=== PATIENT | male | born 1955 | race Caucasian/White ===

== ENCOUNTER 2016-09-19 11:58 | Observation (INO) ==
[2016-09-19] MEDS ORDERED: Aspirin 81 MG TAB.CHEW PO ONE (12:15)
--- NOTE | 2016-09-19 12:30 | Emergency Department Note ---
Disposition Clinical Impression: Unstable angina pectoris Disposition: Admitted As Inpatient Referrals: Casi Henry MD [Primary Care Provider] - Forms: ED Satisfaction Letter Chest Pain HPI - General Chief Complaint: ED Chest Pain Stated Complaint: chest pains Time Seen by Provider: 09/19/16 12:02 Source: patient Limitations: no limitations Vital Signs Reviewed: Yes Nursing Notes Reviewed: Yes - History of Present Illness Pt complaint: chest pain Onset (ago): day(s) (4) Duration: intermittent Onset: during rest, during exertion Pain Location: substernal Severity scale (1-10): 5 Quality: heaviness Pain Radiation: none Improves with: nitroglycerin (Took one nitroglycerin yesterday did help his pain ), rest Worsens with: exertion (When he is working especially at the end of his shift is at its worst) Associated symptoms: Reports: dyspnea Treatments prior to arrival chest pain: none - Related Data Home Medications Medication Instructions Recorded Confirmed Amlodipine Besylate 10 mg PO DAILY 04/27/15 04/27/15 Aspirin [Adult Low Dose Aspirin EC] 81 mg PO DAILY 04/27/15 04/27/15 Atorvastatin Calcium [Lipitor] 80 mg PO HS 04/27/15 04/27/15 Diclofenac Sodium (24 HR) 100 mg PO DAILY 04/27/15 04/27/15 [Voltaren XR] Diclofenac Sodium (24 HR) 200 mg PO DAILY 04/27/15 04/27/15 [Voltaren XR] Hydrochlorothiazide [Microzide] 12.5 mg PO DAILY 04/27/15 04/27/15 Hydroxychloroquine [Plaquenuil] 200 mg PO BID 04/27/15 04/27/15 Isosorbide MONOnitrate [Isosorbide 120 mg PO DAILY 04/27/15 04/27/15 Mononitrate ER] Nitroglycerin 0.4 mg SL Q5MIN PRN 04/27/15 04/27/15 Omeprazole [PriLOSEC] 40 mg PO DAILY 04/27/15 04/27/15 Testosterone Cypionate 200 mg IM Q2W 04/27/15 04/27/15 [DEPO-Testosterone] Vardenafil HCl [Levitra] 20 mg PO DAILY PRN 04/27/15 04/27/15 Vitamin D3/Folic Acid [Dermacinrx 5,000 unit PO DAILY 04/27/15 04/27/15 Purefolix Tablet] Previous Rx's Medication Instructions Recorded Hydrocodone/Acetaminophen [[place] 1 tab PO Q6H PRN #10 tab 04/28/15 5-325 Tablet] Ibuprofen [Motrin] 800 mg PO Q8HR #30 tablet 04/28/15 Allergies Allergy/AdvReac Type Severity Reaction Status Date / Time Iodinated Contrast- Oral and Allergy Hives Verified 04/27/15 23:31 IV Dye [Iodinated Contrast Media - IV Dye] All systems ED: reviewed and negative except as stated. Constitutional: Denies: fever, chills, weakness Cardiovascular: Reports: chest pain Respiratory: Reports: dyspnea Gastrointestinal: Denies: abdominal pain, nausea Musculoskeletal: Denies: back pain Chest Pain PMH - Past Medical History Medical history: Reports: hyperlipidemia, hypertension, kidney stones Psychiatric history: Reports: no psych history - Social History Smoking Status: Never smoker Alcohol use: Reports: none Drug use: Reports: none Physical Exam - General Limitations: no limitations General appearance: alert - Head Head exam: atraumatic, normocephalic, normal inspection - Eye Eye exam: Present: normal appearance, PERRL, EOMI - Expanded Eye Exam Pupils: Left: reactive - ENT ENT exam: normal exam, normal oropharynx, mucous membranes moist - Expanded ENT Exam External ear exam: Present: normal external inspection Mouth exam: Present: normal external inspection Teeth exam: Present: normal inspection Throat exam: Present: normal inspection - Neck Neck exam: Present: normal inspection, full ROM, trachea midline - Chest Chest inspection: Present: normal inspection, symmetric chest wall rise - Respiratory Respiratory exam: Present: normal lung sounds bilaterally - Cardiovascular Cardiovascular exam: Present: regular rate, normal rhythm, normal heart sounds - Abdominal Exam Abdominal exam: Present: soft, Non-Tender. Absent: tenderness, distention, guarding, rebound, rigidity - Extremities Exam Extremities exam: Present: normal inspection, full ROM. Absent: tenderness, pedal edema - Expanded Upper Extremity Exam Shoulder exam: Present: normal inspection, full ROM Arm exam: Present: normal inspection, full ROM Elbow exam: Present: normal inspection, full ROM Forearm/Wrist exam: Present: normal inspection, full ROM Hand exam: Present: normal inspection, full ROM Vascular exam: Normal: capillary refill, radial pulse - Expanded Lower Extremity Exam Hip/Pelvis exam: Present: normal inspection, full ROM Upper leg exam: Present: normal inspection, full ROM Knee exam: Present: normal inspection, full ROM Lower leg exam: Present: normal inspection, full ROM Ankle exam: Present: normal inspection, full ROM Foot/toe exam: Present: normal inspection, full ROM Neurovascular/Tendon exam: Absent: motor deficit, sensory deficit, tendon deficit - Back Exam Back exam: Present: normal inspection, full ROM. Absent: tenderness - Neurological Exam Neurological exam: Present: alert, oriented X3 - Expanded Neurological Exam Patient oriented to: Present: person, place, time Coma Scale Eye Opening: Spontaneous Coma Scale Motor Response: Obeys Commands Coma Scale Verbal Response: Oriented Coma Scale Total: 15 - Psychiatric Psychiatric exam: Present: normal affect, normal mood - Skin Skin exam: Present: warm, dry, intact, normal color Course Vital Signs Temperature 0 F L 09/19/16 12:06 Pulse Rate 57 09/19/16 12:06 Respiratory Rate 10 09/19/16 12:06 Blood Pressure 161/88 09/19/16 12:06 O2 Sat by Pulse Oximetry 97 09/19/16 12:06 Temperature 98.6 F 09/19/16 12:17 Pulse Rate 55 09/19/16 12:29 Respiratory Rate 11 09/19/16 12:29 Blood Pressure 144/81 09/19/16 12:29 O2 Sat by Pulse Oximetry 99 09/19/16 12:29 Oxygen Delivery Oxygen Delivery Nasal Cannula Chest Pain - Medical Records Medical records reviewed: Yes I reviewed the patient's medical records. - Lab Data Lab results reviewed: Yes I reviewed the patient's lab results. Result diagrams: 09/19/16 12:26 09/19/16 12:26 Lab Results 09/19/16 09/19/16 09/19/16 Range/Units 12:26 12:26 12:26 WBC 5.4 (4.3-11.1) K/mcL RBC 4.85 (4.19-5.50) M/mcL Hgb 14.9 (12.9-16.9) g/dL Hct 45.4 (37.5-50.1) % MCV 93.6 (83.0-100.0) fL MCH 30.7 (28.0-33.3) pg MCHC 32.8 (31.6-35.5) g/dL RDW 11.9 (11.5-14.5) % Plt Count 192 (140-400) K/mcL MPV 9.0 L (9.4-12.4) fL Immature Gran % 0.2 (0-4) % Seg Neutrophils % 70.2 % Lymphocytes % 19.8 % Monocytes % 7.4 % Eosinophils % 1.5 % Basophils % 0.9 % Neutrophils # 3.8 (1.6-8.9) K/mcL Lymphocytes # 1.1 (0.6-4.6) K/mcL Monocytes # 0.4 (0.0-1.3) K/mcL Eosinophils # 0.1 (0.0-0.6) K/mcL Basophils # 0.1 (0.0-0.2) K/mcL PT 10.3 (9.4-12.1) Seconds INR 1.0 APTT 29.7 (26.0-36.0) Seconds Sodium 140 (136-145) mEq/L Potassium 3.8 (3.5-4.5) mEq/L Chloride 103 (98-109) mEq/L Carbon Dioxide 30 H (19-29) mEq/L BUN 21 (8-26) mg/dL Creatinine 1.29 H (0.72-1.25) mg/dL Est GFR ( Amer) > 60 (> 60) Est GFR (Non-Af Amer) 56 L (> 60) BUN/Creatinine Ratio 16 (6-26) Glucose 97 (70-99) mg/dL Calculated Osmolality 293 (280-300) Calcium 10.0 (8.6-10.8) mg/dL Troponin I (0-0.03) ng/mL 09/19/16 Range/Units 12:26 WBC (4.3-11.1) K/mcL RBC (4.19-5.50) M/mcL Hgb (12.9-16.9) g/dL Hct (37.5-50.1) % MCV (83.0-100.0) fL MCH (28.0-33.3) pg MCHC (31.6-35.5) g/dL RDW (11.5-14.5) % Plt Count (140-400) K/mcL MPV (9.4-12.4) fL Immature Gran % (0-4) % Seg Neutrophils % % Lymphocytes % % Monocytes % % Eosinophils % % Basophils % % Neutrophils # (1.6-8.9) K/mcL Lymphocytes # (0.6-4.6) K/mcL Monocytes # (0.0-1.3) K/mcL Eosinophils # (0.0-0.6) K/mcL Basophils # (0.0-0.2) K/mcL PT (9.4-12.1) Seconds INR APTT (26.0-36.0) Seconds Sodium (136-145) mEq/L Potassium (3.5-4.5) mEq/L Chloride (98-109) mEq/L Carbon Dioxide (19-29) mEq/L BUN (8-26) mg/dL Creatinine (0.72-1.25) mg/dL Est GFR ( Amer) (> 60) Est GFR (Non-Af Amer) (> 60) BUN/Creatinine Ratio (6-26) Glucose (70-99) mg/dL Calculated Osmolality (280-300) Calcium (8.6-10.8) mg/dL Troponin I 0.01 (0-0.03) ng/mL - Radiology Data Radiology results reviewed: Yes I reviewed the patient's radiology results. - EKG Data EKG attestation: Yes I reviewed and interpreted this EKG. EKG shows normal: sinus rhythm Interpretation: nonspecific ST-T wave changes
[2016-09-19 12:32] LABS: Basophils # 0.1 K/mcL (0.0-0.2); Basophils % 0.9 %; Eosinophils # 0.1 K/mcL (0.0-0.6); Eosinophils % 1.5 %; Hematocrit 45.4 % (37.5-50.1); Hemoglobin 14.9 g/dL (12.9-16.9); Immature Granulocytes % 0.2 % (0-4); Lymphocytes # 1.1 K/mcL (0.6-4.6); Lymphocytes % 19.8 %; Mean Corpuscular HGB Conc 32.8 g/dL (31.6-35.5); Mean Corpuscular Hemoglobin 30.7 pg (28.0-33.3); Mean Corpuscular Volume 93.6 fL (83.0-100.0); Monocytes # 0.4 K/mcL (0.0-1.3); Monocytes % 7.4 %; Neutrophils # 3.8 K/mcL (1.6-8.9); Platelet Count 192 K/mcL (140-400); Red Blood Count 4.85 M/mcL (4.19-5.50); Red Cell Distribution Width 11.9 % (11.5-14.5); Segmented Neutrophils % 70.2 %
[2016-09-19 12:36] LABS: Prothrombin Time 10.3 Seconds (9.4-12.1)
[2016-09-19 12:39] LABS: Activated Partial Thrombo Time 29.7 Seconds (26.0-36.0)
[2016-09-19 12:44] LABS: BUN/Creatinine Ratio 16 (6-26); Blood Urea Nitrogen 21 mg/dL (8-26); Carbon Dioxide 30 mEq/L (19-29); Chloride 103 mEq/L (98-109); Glucose 97 mg/dL (70-99); Osmolality,Calculated 293 (280-300); Potassium 3.8 mEq/L (3.5-4.5); Sodium 140 mEq/L (136-145); eGFR For African Americans > 60 (> 60); eGFR For Non-African Americans 56 (> 60)
[2016-09-19] MEDS ORDERED: Naloxone 0.4 MG/ML INJ IVP PRN (14:10)
[2016-09-19] MEDS ORDERED: Acetaminophen 325 MG TABLET PO PRN (14:10)
[2016-09-19] MEDS ORDERED: Ondansetron ODT 4 MG TAB.RAPDIS SL PRN (14:10)
[2016-09-19] MEDS ORDERED: amLODIPine 5 MG TABLET PO SCH (14:15)
[2016-09-19] MEDS ORDERED: Nitroglycerin 0.4 MG TAB.SUBL SL PRN (14:15)
--- NOTE | 2016-09-19 14:26 | Internal Med History&Physical ---
Date of Encounter: 09/19/16 Time of Encounter: 14:23 Assessment and Plan (1) Unstable angina pectoris Current visit: Yes Status: Acute Patient presents with chest heaviness in the left side of his chest accompanied by shortness of breath, lightheadedness, sweats, palpitations, exacerbated by activity and exertion, relieved by rest and nitroglycerin. Symptoms started Friday and have been worsening. Initial troponin negative at 0.01. EKG shows normal sinus rhythm with nonspecific ST changes. Patient does have a history of coronary artery disease and stent to circumflex in 2008, other risk factors include hypertension, hyperlipidemia, and family history. Continuous cafeteria monitor Serial troponins Nitroglycerin when necessary for chest pain Echocardiogram Cardiology consult Nothing by mouth after midnight for possible stress versus left heart cath (2) Hypertension Current visit: Yes Status: Acute Blood pressure has been controlled since arrival, and patient did not take his morning medications yet today. Holding ACEI for CELINE. Continue home dose of amlodipine. Qualifiers: Hypertension type: essential hypertension Qualified Code(s): I10 - Essential (primary) hypertension (3) Bradycardia Current visit: Yes Status: Acute Patient's heart rate in the 50s, this appears to be somewhat chronic as previous EKGs also show sinus bradycardia. Continuous cafeteria monitor. (4) CELINE (acute kidney injury) Current visit: Yes Status: Acute Creatinine of 1.29. Hold NSAIDs, ACEi, HCTZ. Check chemistry daily. (5) DVT prophylaxis Current visit: Yes Status: Acute anti-embolic stockings Lovenox 40mg SQ daily Internal Medicine - H&P: HPI Chief complaint: chest pain, shortness of breath Admitted From: Emergency Dept Plans for Post Hospital Care: Home History of present illness: Mr. Melchor is a 61 year old male with hypertension, hyperlipidemia, coronary artery disease, acid reflux who presents to the emergency department today with complaints of chest pain. Patient reports that symptoms started on Friday, he describes the chest pain as a heaviness on the left side of his chest, accompanied by shortness of breath, lightheadedness, sweating and palpitations. The symptoms are exacerbated by activity and exertion, and relieved with rest and relieved with nitroglycerin. He denies any headache, cough, nausea, fever, chills. Evaluation in the emergency department included an EKG which showed normal sinus rhythm with nonspecific ST-T wave changes, chest x-ray showed no acute process. Troponin was negative at 0.01. Creatinine was mildly elevated at 1.29. Other labs are grossly normal. On exam, patient alert and oriented, in no acute distress. Heart has regular rhythm with mild bradycardia heart rate in the 50s. Lungs are clear bilaterally to auscultation. No peripheral edema. Past Med Surg Social Fam HX - Past Medical History Medical history: arthritis, coronary artery disease, hyperlipidemia, hypertension, kidney stones Psychiatric history: no psych history - Past Surgical History Surgical History: angioplasty/stent, arthroscopy, orthopedic, other (rotator cuff, carpal tunnel) - Social History Smoking Status: Never smoker Smokeless Tobacco Status: No Alcohol use: none Drug use: none - Family History Father Living Status: Age at : 74 Cause of : IN Hx Family Cardiac Disorders: Yes Sister Living Status: Still Living Hx Family Cardiac Disorders: Yes ([place], pacemaker) Mother Living Status: Age at : 70 Internal Medicine - H&P: Meds Aspirin [Adult Low Dose Aspirin EC] 81 mg PO DAILY 04/27/15 [History] Atorvastatin Calcium [Lipitor] 80 mg PO HS 04/27/15 [History] Hydrochlorothiazide [Microzide] 12.5 mg PO DAILY 04/27/15 [History] Hydroxychloroquine [Plaquenuil] 200 mg PO BID 04/27/15 [History] Isosorbide MONOnitrate [Isosorbide Mononitrate ER] 120 mg PO DAILY 04/27/15 [ History] Nitroglycerin 0.4 mg SL Q5MIN PRN 04/27/15 [History] Omeprazole [PriLOSEC] 40 mg PO DAILY 04/27/15 [History] Testosterone Cypionate [DEPO-Testosterone] 200 mg IM Q2W 04/27/15 [History] Vardenafil HCl [Levitra] 20 mg PO DAILY PRN 04/27/15 [History] Amlodipine Besylate/Benazepril [Lotrel 5-10 mg Capsule] 1 cap PO DAILY 09/19/16 [History] Celecoxib [Celebrex] 200 mg PO BID PRN 09/19/16 [History] Cholecalciferol (D-3) [Vitamin D] 5,000 unit PO DAILY 09/19/16 [History] Diclofenac Sodium [Voltaren] 1 appl TP QID PRN 09/19/16 [History] Allergies Iodinated Contrast- Oral and IV Dye [Iodinated Contrast Media - IV Dye] Allergy (Verified 04/27/15 23:31) Hives All Systems PM: A 10-system review of systems was performed and is negative for pertinent findings except as documented above in the HPI. - Constitutional Constitutional: no chills, no fever(s), no night sweats - EENT Eyes: no change in vision, no discharge, no pain, no photophobia Ears: no ear discharge, no ear pain, no tinnitus Nose, mouth and throat: no dysphagia, no nasal discharge, no neck pain, no sore throat - Cardiovascular Cardiovascular ROS IM: chest pain, diaphoresis, dyspnea, dyspnea on exertion, lightheadedness, palpitations, no syncope - Respiratory Respiratory: dyspnea, no cough, no wheezing, no excessive phlegm production - Gastrointestinal Gastrointestinal: no abdominal pain, no diarrhea, no hematemesis, no hematochezia, no melena, no nausea, no vomiting - Musculoskeletal Musculoskeletal ROS IM: no numbness, no tingling - Integumentary Integumentary IM: no rash, no unusual bruising - Neurological Neurological ROS: no confusion, no convulsions, no focal weakness, no numbness, no tingling, no tremor(s) - Hematologic/Lymphatic Hematologic/Lymphatic: no easy bruising - Constitutional Vitals: Temp Pulse Resp BP Pulse Ox 98.6 F 55 10 156/91 99 09/19/16 12:17 09/19/16 12:29 09/19/16 14:12 09/19/16 14:12 09/19/16 12:29 General appearance: Present: A&O X 3, pleasant, no acute distress - Head Head exam: Present: atraumatic, normocephalic - Eye Eye exam: Present: PERRL, conjuntiva pink, sclera anicteric Pupils: Present: PERRL - Neck Neck exam general surgery: Present: supple, trachea midline. Absent: lymphadenopathy - Respiratory Respiratory exam: Present: CTAB. Absent: accessory muscle use, rales, rhonchi, wheezes - Cardiovascular Cardiovascular exam: Present: RRR, +S1, +S2. Absent: diastolic murmur, gallop, rubs, systolic murmur - GI/Abdominal GI/Abdominal exam: Present: normal bowel sounds, soft, no peritoneal signs. Absent: distended, tenderness - Extremities Exam Extremities exam: Present: warm, radial pulses palpable and symetrical. Absent : calf tenderness, cyanotic, pedal edema - Neurological Exam Neurological exam: Present: CN II-XII intact, oriented X3, no focal deficits. Absent: facial droop, speech deficit - Skin Skin exam: Present: dry, intact Internal Med - H&P Results - Labs CBC & Chem 7: 09/19/16 12:26 09/19/16 12:26 Labs: All Lab Results (24 Hours) 09/19/16 09/19/16 09/19/16 Range/Units 12:26 12:26 12:26 WBC 5.4 (4.3-11.1) K/mcL RBC 4.85 (4.19-5.50) M/mcL Hgb 14.9 (12.9-16.9) g/dL Hct 45.4 (37.5-50.1) % MCV 93.6 (83.0-100.0) fL MCH 30.7 (28.0-33.3) pg MCHC 32.8 (31.6-35.5) g/dL RDW 11.9 (11.5-14.5) % Plt Count 192 (140-400) K/mcL MPV 9.0 L (9.4-12.4) fL Immature Gran % 0.2 (0-4) % Seg Neutrophils % 70.2 % Lymphocytes % 19.8 % Monocytes % 7.4 % Eosinophils % 1.5 % Basophils % 0.9 % Neutrophils # 3.8 (1.6-8.9) K/mcL Lymphocytes # 1.1 (0.6-4.6) K/mcL Monocytes # 0.4 (0.0-1.3) K/mcL Eosinophils # 0.1 (0.0-0.6) K/mcL Basophils # 0.1 (0.0-0.2) K/mcL PT 10.3 (9.4-12.1) Seconds INR 1.0 APTT 29.7 (26.0-36.0) Seconds Sodium 140 (136-145) mEq/L Potassium 3.8 (3.5-4.5) mEq/L Chloride 103 (98-109) mEq/L Carbon Dioxide 30 H (19-29) mEq/L BUN 21 (8-26) mg/dL Creatinine 1.29 H (0.72-1.25) mg/dL Est GFR ( Amer) > 60 (> 60) Est GFR (Non-Af Amer) 56 L (> 60) BUN/Creatinine Ratio 16 (6-26) Glucose 97 (70-99) mg/dL Calculated Osmolality 293 (280-300) Calcium 10.0 (8.6-10.8) mg/dL Troponin I (0-0.03) ng/mL 09/19/16 Range/Units 12:26 WBC (4.3-11.1) K/mcL RBC (4.19-5.50) M/mcL Hgb (12.9-16.9) g/dL Hct (37.5-50.1) % MCV (83.0-100.0) fL MCH (28.0-33.3) pg MCHC (31.6-35.5) g/dL RDW (11.5-14.5) % Plt Count (140-400) K/mcL MPV (9.4-12.4) fL Immature Gran % (0-4) % Seg Neutrophils % % Lymphocytes % % Monocytes % % Eosinophils % % Basophils % % Neutrophils # (1.6-8.9) K/mcL Lymphocytes # (0.6-4.6) K/mcL Monocytes # (0.0-1.3) K/mcL Eosinophils # (0.0-0.6) K/mcL Basophils # (0.0-0.2) K/mcL PT (9.4-12.1) Seconds INR APTT (26.0-36.0) Seconds Sodium (136-145) mEq/L Potassium (3.5-4.5) mEq/L Chloride (98-109) mEq/L Carbon Dioxide (19-29) mEq/L BUN (8-26) mg/dL Creatinine (0.72-1.25) mg/dL Est GFR ( Amer) (> 60) Est GFR (Non-Af Amer) (> 60) BUN/Creatinine Ratio (6-26) Glucose (70-99) mg/dL Calculated Osmolality (280-300) Calcium (8.6-10.8) mg/dL Troponin I 0.01 (0-0.03) ng/mL - Diagnostic Studies Chest x-ray Additional comments: Chest X-Ray 09/19/16 12:15 IMPRESSION: No acute process. D/ / Lexa Overton MD / Lexa Overton MD Interpreting Provider: Lexa Overton MD
--- NOTE | 2016-09-19 16:02 | Cardiology Consult Note ---
Date of Encounter: 09/19/16 Time of Encounter: 15:30 Assessment and Plan (1) CAD (coronary artery disease) Current Visit: Yes Status: Chronic Per cardiology: -KNown CAD with [facility] 2008 with stenting to circumflex. -ON asa, statin, mariely inhibitor, and calcium channerl zeferino. -HAs not been on beta zeferino due to bradycardia. -Echo 2012 LVEF 55%, mild diastolic dysfunction, no significant valvular dysfunction, all winn with normal motion. -Stress 2012 negative for ishcemia or infarct. -Will not start beta zeferino due to bradycardia. Qualifiers: Coronary Disease-Associated Artery/Lesion type: [place] artery [place] vs. transplanted heart: [place] heart Associated angina: with unstable angina Qualified Code(s): I25.110 - Atherosclerotic heart disease of [place] coronary artery with unstable angina pectoris (2) Chest pain Current Visit: Yes Status: Acute Per cardiology: -3-4 day history of mid sternal chest pain. -Worsened with working/excertion. -Relieved with rest/nitro. -ECG with no ischemic changes. -Troponin negative x1. -States pain much improved at this time. -Trending troponins ordered. -Pateint with typical chest pain symptoms. -Will make NPO after midnight. -PLan for LHC in am pending repeat creatinine in am. -Will pre-treat for IVP dye allergy prior to LHC. Qualifiers: Chest pain type: other chest pain Qualified Code(s): R07.89 - Other chest pain; R07.8 - Other chest pain (3) CELINE (acute kidney injury) Current Visit: Yes Status: Acute Per cardiology: -Creatinine 1.29. -Baseline 0.8-1.1 -Mangement per primary service. -Will repeat in am. (4) Hypertension Current Visit: Yes Status: Chronic Per cardiology: -KNown hypertension. -BPs 130-140s systollic. -Will increase norvasc to 10mg daily. -Will continue to monitor. Qualifiers: Hypertension type: essential hypertension Qualified Code(s): I10 - Essential (primary) hypertension Discussion w patient/family: The assessment and plan as outlined above was discussed with the patient and/or family members who expressed understanding and agreement. All questions were answered. Thank you for involving us in the care of your patient. Please call with any questions. DIscussed and reviewed with . History of Present Illness Consult date: 09/19/16 Requesting physician: Sahara Sosa Consult reason: history of CAD, chest pain, shortness of breath Chief complaint: chest tightness, shortness of breath History of present illness: Mr. Melchor is a 61 year old male with a relevant past medical history of CAD s/ p stenting of cirumflex 2009, HTN, Hyperlipidemia, RA, TIA, ID, depression. Patient presented to [facility] after being seen by PCP for chest "tightness." Patient states he has been having chest tightness for the past 3-4 days. Patient states at worst, he would rate pain a 7/10. Patient reports chest pain worsened with working/excertion and relieved with rest and nitro. Patient reports increased shortness of breath and increased fatigue. Past Med Surg Social Fam HX - Past Medical History Attestation: Yes The following information was validated with the patient. Source: patient, old records reviewed, obtained from family Medical history: arthritis, coronary artery disease, hyperlipidemia, hypertension, kidney stones Psychiatric history: no psych history - Past Surgical History Surgical History: angioplasty/stent, arthroscopy, orthopedic, other (rotator cuff, carpal tunnel) - Social History Smoking Status: Never smoker Smokeless Tobacco Status: No Alcohol use: none Drug use: none - Family History Father Living Status: Age at : 74 Cause of : ID Hx Family Cardiac Disorders: Yes Sister Living Status: Still Living Hx Family Cardiac Disorders: Yes (ID, pacemaker) Mother Living Status: Age at : 70 Medications and Allergies Aspirin [Adult Low Dose Aspirin EC] 81 mg PO DAILY 04/27/15 [History] Atorvastatin Calcium [Lipitor] 80 mg PO HS 04/27/15 [History] Hydrochlorothiazide [Microzide] 12.5 mg PO DAILY 04/27/15 [History] Hydroxychloroquine [Plaquenuil] 200 mg PO BID 04/27/15 [History] Isosorbide MONOnitrate [Isosorbide Mononitrate ER] 120 mg PO DAILY 04/27/15 [ History] Nitroglycerin 0.4 mg SL Q5MIN PRN 04/27/15 [History] Omeprazole [PriLOSEC] 40 mg PO DAILY 04/27/15 [History] Testosterone Cypionate [DEPO-Testosterone] 200 mg IM Q2W 04/27/15 [History] Vardenafil HCl [Levitra] 20 mg PO DAILY PRN 04/27/15 [History] Amlodipine Besylate/Benazepril [Lotrel 5-10 mg Capsule] 1 cap PO DAILY 09/19/16 [History] Celecoxib [Celebrex] 200 mg PO BID PRN 09/19/16 [History] Cholecalciferol (D-3) [Vitamin D] 5,000 unit PO DAILY 09/19/16 [History] Diclofenac Sodium [Voltaren] 1 appl TP QID PRN 09/19/16 [History] Allergies Iodinated Contrast- Oral and IV Dye [Iodinated Contrast Media - IV Dye] Allergy (Verified 04/27/15 23:31) Hives All Systems Review: A 10-system review of systems was performed and is negative for pertinent findings except as documented above in the HPI. - Constitutional Constitutional: fatigue - Cardiovascular Cardiovascular: as per HPI, chest pain with exertion, dyspnea on exertion Physical Examination Vital Signs, Last 4 Hours Temp Pulse Resp BP Pulse Ox 09/19/16 15:18 97.7 F 50 17 131/83 98 09/19/16 14:12 10 156/91 General: Conversant, No Apparent Distress HEENT: Atraumatic, Normocephaly, Mucus Membranes Moist Neck: No JVD, Normal carotid pulses Cardiac: Reg Rate and Rhythm, Normal S1 and S2, No Murmur Lungs: Normal Breath Sounds, No Wheeze, Rales, Rhonchi Neuro: Alert and responsive, No focal deficits noted Abdomen: Soft, Non-Tender Skin: No rashes noted on visualized skin Musculoskeletal: No Chest Wall Tenderness Extremities: No Clubbing, No Cyanosis, No Edema, Normal Pulses Results 09/19/16 12:26 09/19/16 12:26 Impressions Chest X-Ray 09/19/16 12:15 IMPRESSION: No acute process. D/ / Lexa Overton MD / Lexa Overton MD Interpreting Provider: Lexa Overton MD Active Medications Acetaminophen (Tylenol) 650 mg PO Q6HR PRN PRN Reason: Mild Pain (1-3) Stop: 03/21/17 14:11 Amlodipine Besylate (Norvasc) 10 mg PO DAILY [facility] PRN Reason: Protocol Stop: 03/22/17 09:01 Aspirin (Aspirin Ec) 81 mg PO DAILY [facility] Stop: 03/22/17 09:01 Atorvastatin Calcium (Lipitor) 80 mg PO HS [facility] Stop: 03/21/17 21:01 Docusate Sodium (Colace) 100 mg PO BID PRN PRN Reason: Constipation Stop: 03/21/17 14:11 Hydroxychloroquine Sulfate (Plaquenuil) 200 mg PO BID [facility] Stop: 03/21/17 21:01 Isosorbide Mononitrate (Imdur) 120 mg PO DAILY [facility] Stop: 03/21/17 14:16 Naloxone HCl (Narcan) 0.4 mg IVP Q2MIN PRN PRN Reason: Opioid Reversal Stop: 03/21/17 14:11 Nitroglycerin (Nitroglycerin) 0.4 mg SL Q5MIN PRN PRN Reason: Chest Pain Stop: 03/21/17 14:16 Omeprazole (Prilosec) 40 mg PO DAILY [facility] Stop: 03/22/17 09:01 Ondansetron HCl (Zofran Odt) 4 mg SL Q8HR PRN PRN Reason: Nausea And Vomiting Stop: 03/21/17 14:11 Vitamin D (Vitamin D) 1,000 unit PO DAILY [facility] Stop: 03/21/17 14:16 Laboratory Tests 10/04/15 09/19/16 09/19/16 14:30 12:26 12:26 Hgb 14.9 Creatinine 1.06 1.29 H Troponin I 09/19/16 12:26 Hgb Creatinine Troponin I 0.01 - Imaging and Cardiology Chest Xray: report reviewed Stress Test: report reviewed Echo: report reviewed - EKG Interpretation EKG results cardiology: personally reviewed (ECG with SR, HR 61.), other Consult Discharge Plan - Plan Referrals: Casi Henry MD [Primary Care Provider] -
[2016-09-19] MEDS: Isosorbide MONOnitrate (24 HR) 60 MG TAB.ER.24H PO SCH (16:40)
[2016-09-19] MEDS: Cholecalciferol (D-3) 1,000 UNIT TABLET PO SCH (16:41)
[2016-09-20 00:47] LABS: Basophils # 0.1 K/mcL (0.0-0.2); Basophils % 0.9 %; Eosinophils # 0.2 K/mcL (0.0-0.6); Eosinophils % 3.7 %; Hematocrit 41.7 % (37.5-50.1); Hemoglobin 13.5 g/dL (12.9-16.9); Immature Granulocytes % 0.2 % (0-4); Lymphocytes # 1.5 K/mcL (0.6-4.6); Lymphocytes % 26.5 %; Mean Corpuscular HGB Conc 32.4 g/dL (31.6-35.5); Mean Corpuscular Hemoglobin 30.6 pg (28.0-33.3); Mean Corpuscular Volume 94.6 fL (83.0-100.0); Mean Platelet Volume 9.5 fL (9.4-12.4); Monocytes # 0.5 K/mcL (0.0-1.3); Neutrophils # 3.4 K/mcL (1.6-8.9); Platelet Count 185 K/mcL (140-400); Red Blood Count 4.41 M/mcL (4.19-5.50); Red Cell Distribution Width 12.1 % (11.5-14.5); Segmented Neutrophils % 59.7 %
[2016-09-20 01:01] LABS: BUN/Creatinine Ratio 18 (6-26); Blood Urea Nitrogen 22 mg/dL (8-26); Calcium 9.3 mg/dL (8.6-10.8); Carbon Dioxide 29 mEq/L (19-29); Chloride 104 mEq/L (98-109); Chol/HDL Ratio 5.5 (0-4.9); Cholesterol 251 mg/dL (< 200); Glucose 106 mg/dL (70-99); HDL Cholesterol 46 mg/dL (40-59); LDL Cholesterol,Calculated 161 mg/dL (0-99); Osmolality,Calculated 296 (280-300); Potassium 3.9 mEq/L (3.5-4.5); Sodium 141 mEq/L (136-145); Triglycerides 219 mg/dL (< 150); eGFR For African Americans > 60 (> 60); eGFR For Non-African Americans 58 (> 60)
--- NOTE | 2016-09-20 06:38 | Electrocardiograph Report ---
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
[2016-09-20] MEDS: amLODIPine 5 MG TABLET PO SCH (07:35)
[2016-09-20] MEDS: Isosorbide MONOnitrate (24 HR) 60 MG TAB.ER.24H PO SCH (07:36)
[2016-09-20] MEDS: Aspirin Enteric Coated 81 MG Tablet PO SCH (07:36)
[2016-09-20] MEDS: Cholecalciferol (D-3) 1,000 UNIT TABLET PO SCH (07:36)
--- NOTE | 2016-09-20 08:55 | Event Note ---
Date of Encounter: 09/20/16 Time of Encounter: 08:30 - Cardiology Event Note PLan for [facility] today. Creatinine slightly improved today at 1.25. Risks versus benefits of LHC explained to patient and family. Patient agreeable to proceed with C. All questions answered. Order placed. Discussed with regarding IVP dye allergy, states he will give pre-treatment IV in laborer plumbing. lab nurse staff aware of IVP dye allergy. Further cardiology recommendations pending [facility].
[2016-09-20] MEDS ORDERED: 0.9 % Sodium Chloride 1,000 ML ONE (10:03)
[2016-09-20] MEDS ORDERED: Verapamil 5 MG/2 ML VIAL ONE (10:03)
[2016-09-20] MEDS ORDERED: Heparin 1,000 UNITS/500 mL NS 500 ML ONE (10:03)
[2016-09-20] MEDS ORDERED: *HR* Heparin 10,000 UNIT/10 ML VIAL ONE (10:04)
[2016-09-20] MEDS ORDERED: Nitroglycerin 1,000 MCG/10 ML VIAL IV ONE (10:04)
[2016-09-20] MEDS ORDERED: methylPREDNISolone 125 MG/2 ML VIAL ONE (10:05)
[2016-09-20] MEDS ORDERED: *HR* FentaNYL (PF) 100 MCG/2 ML VIAL ONE (10:07)
[2016-09-20] MEDS ORDERED: *HR* Midazolam HCl 5 MG/5 ML VIAL IVP ONE (10:08)
[2016-09-20] MEDS ORDERED: Tirofiban 5 MG/100ML 5 MG/100 ML BAG IV ONE (10:57)
[2016-09-20] MEDS ORDERED: *HR* Ticagrelor 90 MG TABLET ONE (10:57)
--- NOTE | 2016-09-20 11:23 | Invasive Diagnostic Lab Proc ---
Name: Lexa Melcohr Date of Study: 09/20/2016 Date: 1955 Ht: 68.9in Medical Record#: [id number] Age: 61 Wt: 198.42lb Gender: Male BSA: 2.06 Order #: [id number] BMI: 29.39 Physicians Procedure Physician: Khang Matias MD, [facility] Referring MD: Referring MD: Staff Name Position Time In Sites, [facility] RT (R) Monitor 10:12 AM Adriana Bae RT (R) Scrub 10:12 AM Fatoumata Jaramillo RN Outsole Paraffiner 10:12 AM Indications Indication Unstable Angina Abnormal Test - ECHO Procedures Performed Procedure L HRT ARTERY/VENTRICLE ANGIO PRQ CARD JIMBO STENT W/ANGIO 1 VSL Pre-Procedure Checklist Informed consent is complete signed and on chart. H&P is on chart. ID band is on and ID verified with patient. Patient NPO for procedure The procedure was described for the patient and questions were answered. Blood Pressure: 116/61 ECG is on chart. Rhythm: NSR Plan of Care Patient will tolerate the procedure without complications. Adequate level of comfort will be maintained. Hemodynamics will remain stable Patient will recover from procedure without complications. Respiratory function will be maintained. Cardiac rhythm will remain stable. Patient temperature will be maintained. Patient and/or family have verbalized understanding of the procedure. Patient Education Intravenous Access Time IV Size Location DC'd Fluid/Drip Rate Units RN 18g 1 /" Patent On Arrival Rt Antecubital 0.9NaCl 25 ml/hr Fatoumata Jaramillo RN Allergies Iodinated Contrast- Oral and IV Dye IVP DYE (IODINE) Vital Signs Time BP (mmHg) HR (bpm) O2 Sat. RR (bpm) LOC 116 / 61 57 96 % 16 10:22 AM 137 / 79 57 % 7 10:25 AM 126 / 76 69 96 % 17 10:28 AM 127 / 78 72 98 % 14 10:31 AM 120 / 72 71 96 % 14 10:34 AM 124 / 72 72 96 % 16 10:37 AM 115 / 64 82 96 % 16 10:40 AM 119 / 67 86 95 % 17 10:43 AM 121 / 66 82 96 % 18 10:46 AM 116 / 65 74 96 % 16 10:49 AM 119 / 64 74 97 % 15 10:52 AM 124 / 64 69 97 % 13 10:55 AM 124 / 68 66 97 % 14 10:58 AM 121 / 66 67 97 % 14 11:01 AM 126 / 69 56 98 % 24 11:04 AM 114 / 64 54 98 % 19 11:07 AM 120 / 68 59 99 % 11 Procedural Medications Time Medication Dose Units Method Given By 10:23 AM Oxygen 2 L/min nasal cannula Fatoumata Jaramillo RN 10:24 AM Benadryl 50 mg Intravenous Fatoumata Jaramillo RN 10:24 AM Solu-medrol 125 mg Intravenous Fatoumata Jaramillo RN 10:24 AM Versed 2 mg Intravenous Fatoumata Jaramillo RN 10:24 AM Fentanyl 50 mcg Intravenous Fatoumata Jaramillo RN 10:33 AM Lidocaine 2% 0.5 ml Subcutaneous Khang Matias MD, FACC 10:35 AM Heparin 4000 units Nitroglycerin 200 mcg Verapamil 2.5 mg Intraarterial Khang Matias MD, FACC 10:47 AM Heparin 3000 units Intravenous Fatoumata Jaramillo RN 10:55 AM Aggrastat Bolus: 50 ml Intravenous Fatoumata Jaramillo RN 10:55 AM Aggrastat 5mg/100ml 18 ml Intravenous Fatoumata Jaramillo RN 11:08 AM Brilinta 180 mg Orally Fatoumata Jaramillo RN ASA Classification: CLASS II- Mild systemic disease (i.e. well-controlled diabetes, hypertension, asthma, cigarette smoking) Geronimo Score Preprocedure Postprocedure Activity 2- Moves 4 extremities sustained head lift Activity 2- Moves 4 extremities sustained head lift Circulation 2- SBP +/= 20 points of pre-anesthetic level Circulation 2- SBP +/= 20 points of pre-anesthetic level Consciousness 2- Awake and alert oriented x 3 Consciousness 2- Awake and alert oriented x 3 O2 Saturation 2- Able to maintain O2 satruation of 92% on room air O2 Saturation 2- Able to maintain O2 satruation of 92% on room air Respiratory 2- Able to deep breathe and cough well Respiratory 2- Able to deep breathe and cough well Total Score 10 Total Score 10 Contrast Agent: Isovue Diagnostic Contrast: 109 ml Total Contrast: 109 ml Fluoro Dose: 890 mGy Activated Clotting Time Time Seconds to Clot 10:47 AM 200 Procedure Log Time Note Enter By 10:11 AM CathStat 10:12 AM Pt arrived to boot and shoe laborer 2 at 10:11 tsites 10:12 AM Sahara Meléndez RT (R) Position: Monitor Time in: 10:12 tsites 10:12 AM Adriana Bae RT (R) Position: Scrub Time in: 10:12 tsites 10:12 AM Fatoumata Jaramillo RN Position: Outsole Paraffiner Time in: 10:12 tsites 10:12 AM Patient charges- Angio tray pack, Navilyst 3mm J, Pulse Oximetry and ACIST tubing and transducer tsites 10:12 AM Case Delayed No tsites 10:12 AM Physician arrived 10:12 tsites 10:12 AM Meet and greet completed tsites 10:12 AM Sign in performed according to hospital policy. tsites 10:12 AM Procedure start 10:12 tsites 10:21 AM Vitals capture started with the following parameters, Patient=Adult, Interval=3 min, Initial Npztsfoa=787 mmHg, Deflation Rate=5 mmHg, Cuff placed on Right Arm 10:22 AM HR=57 bpm, ECIW=788/79 mmhg, Resp=7 B/min 10:23 AM Hair removed from procedure site in procedure lab using clippers. Right wrist and right groin prepped with Chloraprep by Yancy Bush RT, safety strap applied then patient was draped. Skin intact. tsites 10:24 AM Time: 10:23 Oxygen on at 2 L/min per nasal cannula by Fatoumata Jaramillo RN tsites 10:24 AM Time: 10:24 Benadryl 50 mg Intravenous Given by Fatoumata Jaramillo RN tsites 10:24 AM Time: 10:24 Solu-medrol 125 mg Intravenous Given by Fatoumata Jaramillo RN tsites 10:24 AM Time: 10:24 Versed 2 mg Intravenous Given by Fatoumata Jaramillo RN tsites 10:24 AM Time: 10:24 Fentanyl 50 mcg Intravenous Given by Fatoumata Jaramillo RN tsites 10:24 AM Clinical Presentation: Unstable angina tsites 10:24 AM Recorded ECG: HR=64 Condition=Condition 1 10:25 AM HR=69 bpm, MGWD=268/76 mmhg, SpO2=96.0 %, Resp=17 B/min 10:28 AM HR=72 bpm, BCAB=486/78 mmhg, SpO2=98.0 %, Resp=14 B/min 10:31 AM HR=71 bpm, UKZB=264/72 mmhg, SpO2=96.0 %, Resp=14 B/min 10:33 AM Time out performed according to hospital policy tsites 10:34 AM HR=72 bpm, EKOF=918/72 mmhg, SpO2=96 %, Resp=16 B/min 10:35 AM Time: 10:33 0.5 ml Lidocaine 2% to right radial Subcutaneous Given by Khang Matias MD, [facility] tsites 10:35 AM Access obtained by percutaneous puncture. 6Fr 10cm Terumo Glidesheath sheath placed in right Radial artery. [id number] tsites 10:35 AM Time: 10:35 Patient given 4,000 units Heparin, 200 mcg Nitroglycerin, and 2.5 mg Verapamil Intraarterial by Khang Matias MD, [facility] tsites 10:35 AM 5Fr TIG catheter inserted over the wire [facility] tsites 10:35 AM 0.035 260cm Navilyst 3mmJ wire [id number] tsites 10:37 AM HR=82 bpm, TQIA=882/64 mmhg, SpO2=96 %, Resp=16 B/min 10:37 AM LCA angiography performed in multiple views. tsites 10:38 AM Recorded Pressure: Ao, HR=84, Condition=Condition 1 (Aorta) Ao 91/68/79 10:40 AM HR=86 bpm, OAPA=242/67 mmhg, SpO2=95.0 %, Resp=17 B/min 10:41 AM RCA angiography performed in multiple views. tsites 10:42 AM Lesion found in Mid Circumflex. Pre Stenosis: 60 Pre MARCO Flow: tsites 10:42 AM Lesion found in Distal RCA. Pre Stenosis: 90 Pre MARCO Flow: tsites 10:42 AM Right Coronary, Right Posterior Descending Arteries with Right Posterolateral and Acute Marginal branches with 90 % stenosis. If graft is supplying this area, 0 % stenosis tsites 10:42 AM Circumflex, Obtuse Marginal, Left Posterior Descending, and Left Posterolateral Coronary Arteries with 60 % stenosis. If graft is supplying this area, 0 % stenosis tsites 10:42 AM 5Fr Pigtail catheter inserted over the wire [facility] tsites 10:42 AM Catheter selectively placed in left ventricle tsites 10:43 AM HR=82 bpm, LJHR=419/66 mmhg, SpO2=96.0 %, Resp=18 B/min 10:43 AM Recorded Pressure: LV, HR=82, Condition=Condition 1 (Left Ventricle) LV 110/6/17 10:43 AM Bolus angiogram of left Ventricle complete: 10 ml/sec for a total of 20 mls tsites 10:44 AM Recorded Pressure: LV, Ao, HR=80, Condition=Condition 1 (Left Ventricle) LV 122/21/53, (Aorta) Ao 133/75/98 10:45 AM Coronary Dominance: right tsites 10:45 AM ACT drawn tsites 10:45 AM PCI Status Urgent tsites 10:45 AM PCI Indication: PCI for high risk Non-STEMI or unstable angina tsites 10:45 AM PCI lesion in Distal RCA. tsites 10:46 AM 6Fr RBR 3.5 Convey guide catheter was used to cannulate the PCI vessel successfully. reused? No tsites 10:46 AM Inflation device was opened. tsites 10:46 AM .014 [place] 182cm guide wire across target lesion- successful. reused? No tsites 10:46 AM HR=74 bpm, KCCA=627/65 mmhg, SpO2=96.0 %, Resp=16 B/min 10:47 AM At 10:47 the ACT was 200 seconds. tsites 10:47 AM Time: 10:47 Heparin 3000 units Intravenous Given by Fatoumata Jaramillo RN tsites 10:48 AM Recorded Pressure: Ao, HR=77, Condition=Condition 1 (Aorta) Ao 129/58/102 10:49 AM HR=74 bpm, DPES=306/64 mmhg, SpO2=97 %, Resp=15 B/min 10:49 AM 2.5 mm x 15 mm Emerge Monorail balloon across target lesion- successful. reused? No tsites 10:52 AM HR=69 bpm, IUNM=070/64 mmhg, SpO2=97 %, Resp=13 B/min 10:52 AM Balloon inflated @ 10 timothy for 12 seconds tsites 10:53 AM Balloon inflated @ 14 timothy for 19 seconds tsites 10:53 AM Balloon inflated @ 14 timothy for 9 seconds tsites 10:55 AM HR=66 bpm, WCXW=457/68 mmhg, SpO2=97 %, Resp=14 B/min 10:55 AM Time: 10:55 Aggrastat Bolus: 50 ml Intravenous Given by Fatoumata Jaramillo RN Garrett pump tsites 10:55 AM Time: 10:55 Aggrastat 5mg/100ml 18 ml Intravenous Given by Fatoumata Jaramillo RN Garrett pump tsites 10:56 AM Balloon catheter removed intact. tsites 10:57 AM 3.0mm x 38mm Synergy drug-eluting stent across target lesion- successful Lot #[id number] tsites 10:58 AM HR=67 bpm, VXQF=328/66 mmhg, SpO2=97.0 %, Resp=14 B/min, Comment=sr 10:58 AM Stent deployed @ 14 timothy for 22 seconds tsites 10:59 AM Stent delivery system removed intact. tsites 11:00 AM 3.5 mm x 15mm NC Trek Rx balloon across target lesion- successful. reused? No tsites 11:01 AM HR=56 bpm, TBAC=248/69 mmhg, SpO2=98.0 %, Resp=24 B/min 11:03 AM Balloon inflated @ 14 timothy for 37 seconds tsites 11:04 AM HR=54 bpm, KUEZ=663/64 mmhg, SpO2=98 %, Resp=19 B/min 11:05 AM Guide wire removed intact. tsites 11:06 AM Balloon catheter removed intact. tsites 11:06 AM Guide catheter removed intact. tsites 11:06 AM Procedure completed at 11:06 tsites 11:07 AM Sign out completed: Radiation Dose 890 mGy Fluoro Time: 10.8 Isovue 370 - 500ml contrast 109 ml given by Khang Matias MD, [facility]. Complications: NoneCardiac Rehab Consult needed: YesConfirmed administered medications: Yes tsites 11:07 AM Isovue 370 - 500ml,1 Bottle(s) used. tsites 11:07 AM HR=59 bpm, CIGN=107/68 mmhg, SpO2=99 %, Resp=11 B/min 11:07 AM Arterial sheath pulled, Vasc Band closure device used and was Successful S/N. tsites 11:07 AM 11 ml air in Vasc Band. tsites 11:07 AM Post ECG NSR tsites 11:08 AM Post Blood Pressure 120/68 tsites 11:08 AM 11:08 Post Pulses Rt Radial 1+ tsites 11:08 AM Time: 11:08 Brilinta 180 mg Orally Given by Fatoumata Jaramillo RN tsites 11:09 AM Information taught Cardiac Cath, PCI, and Vasc Band tsites 11:09 AM Education needs Procedure, Plan of Care, and Responsibilities of Patient in Care tsites 11:09 AM Learning barriers :None tsites 11:09 AM Education Methods Verbal tsites 11:09 AM Education evaluation Able to repeat information tsites 11:09 AM Site status No bleeding/hematoma - Rt Wrist as reported by Adriana Bae RT (R) at 11:09 tsites 11:09 AM Plavix, Effient or Brilinta given Yes tsites 11:10 AM Delay to floor No tsites 11:10 AM Patient out of room: 11:10 tsites 11:10 AM Family placed in consult room. tsites 11:13 AM Report given to alistair WAGGONER Pt taken to 3B Room #48. 11:12 tsites Complications Complication None Hemodynamics Pressures Site Systolic/A Wave Diastolic/V Wave Mean AO 91 68 79 LV 110 6 17 LV 122 21 53 AO 133 75 98 AO 129 58 102 Post Procedure Information Blood Pressure: 120/68 mmHg Rhythm: NSR Post procedural instructions were given Closure Device Time Device Success/Fail 09/20/2016 11:10:00 AM Mechanical Compression Successful Site Checks Time Location Status Staff Sheath In? Note 11:09 AM Rt Wrist No bleeding/hematoma Adriana Bae RT (R) Pulses Time Site Pre-Procedure Post-Procedure Note Bilateral DP & PT 2+ Bilateral radial 2+ 11:08:00 AM Rt Radial 1+ Updated by Sahara Meléndez RT (R) on 09/20/2016 11:15:36 AM Sahara Meléndez RT electronically signed on 09/20/2016 11:16:44 AM with status of Final
--- NOTE | 2016-09-20 12:04 | Pre-Sedation Evaluation ---
Pre-sedation evaluation - Pre-sedation checklist Date of procedure: 09/20/16 Procedure: [facility] Recent Vitals: Last Vital Signs Temp 98.3 F 09/20/16 11:32 Pulse 62 09/20/16 11:32 Resp 14 09/20/16 11:32 BP 121/70 09/20/16 11:32 Pulse Ox 97 09/20/16 07:19 H&P (including ROS) documented in medical record: Yes Previous reaction to sedatives/anesthetics: No Dietary Status: NPO after Midnight Airway Assessment: Patient can open mouth completely, TMJ function normal ASA Classification *see protocol: CLASS II-Mild systemic disease Plan of Care: Pt appropriate candidate for procedure/moderate/conscious sedation , Risks/benefits of procedure/sedation discussed w/ patient/family
--- NOTE | 2016-09-20 18:27 | Internal Med Progress Note ---
Date of Encounter: 09/20/16 Time of Encounter: 16:00 - Assessment and plan (1) Chest pain Current Visit: Yes Status: Acute Assessment and plan: Patient currently denies chest pain but states mild soreness to his chest after the procedure. He had a left heart catheter which resulted in one stent and he was started on Brillinta. Echocardiogram unremarkable with ejection fraction of 55%. We will observe overnight and likely discharge tomorrow morning pending clinical outcomes. Qualifiers: Chest pain type: other chest pain Qualified Code(s): R07.89 - Other chest pain; R07.8 - Other chest pain (2) Unstable angina pectoris Current Visit: Yes Status: Resolved (3) HLD (hyperlipidemia) Current Visit: Yes Status: Chronic Assessment and plan: Lipid panel abnormal, recommend continue high-dose statin and low-cholesterol diet Qualifiers: Hyperlipidemia type: unspecified Qualified Code(s): E78.5 - Hyperlipidemia , unspecified (4) Hypertension Current Visit: Yes Status: Chronic Assessment and plan: Controlled, we will continue to trend and adjust medications as indicated. Qualifiers: Hypertension type: essential hypertension Qualified Code(s): I10 - Essential (primary) hypertension (5) Bradycardia Current Visit: Yes Status: Resolved (6) CELINE (acute kidney injury) Current Visit: Yes Status: Acute Assessment and plan: Nearly resolved, creatinine normal today. (7) DVT prophylaxis Current Visit: Yes Status: Acute Assessment and plan: up ad fortino. likely DC tomorrow am. (8) CAD (coronary artery disease) Current Visit: Yes Status: Chronic Qualifiers: Coronary Disease-Associated Artery/Lesion type: [place] artery [place] vs. transplanted heart: [place] heart Associated angina: with unstable angina Qualified Code(s): I25.110 - Atherosclerotic heart disease of [place] coronary artery with unstable angina pectoris - Subjective Interval history: Patient seen and examined. On examination, patient sitting upright in his chair conversing with his . Patient stating he is feeling better than yesterday but is a little bit sore after the procedure. He also endorses low back pain secondary sitting in bed. He states he is eating well. - Constitutional Vitals: Temp Pulse Resp BP Pulse Ox 99.1 F 82 16 116/73 94 09/20/16 15:33 09/20/16 15:33 09/20/16 15:33 09/20/16 15:33 09/20/16 15:33 General appearance: Present: A&O X 3, pleasant, no acute distress, answers questions appropriately - Head Head exam: Present: atraumatic, normocephalic - Eye Eye exam: Present: PERRL, conjuntiva pink, sclera anicteric Pupils: Present: PERRL - Neck Neck exam general surgery: Present: supple, trachea midline. Absent: lymphadenopathy - Respiratory Respiratory exam: Present: CTAB. Absent: accessory muscle use, rales, respiratory distress, rhonchi, wheezes - Cardiovascular Cardiovascular exam: Present: RRR, +S1, +S2. Absent: diastolic murmur, gallop, rubs, systolic murmur - GI/Abdominal GI/Abdominal exam: Present: normal bowel sounds, soft, no peritoneal signs. Absent: distended, tenderness - Extremities Exam Extremities exam: Present: warm, radial pulses palpable and symetrical. Absent : calf tenderness, cyanotic, pedal edema - Neurological Exam Neurological exam: Present: alert, CN II-XII intact, normal gait, oriented X3, no focal deficits, strengths equal and symetr throughout. Absent: pronater drift, facial droop, speech deficit - Skin Skin exam: Present: dry, intact, pallor, warm Internal Medicine: Result - Labs CBC & Chem 7: 09/20/16 00:27 09/20/16 00:27 Labs: Short CBC 09/20/16 Range/Units 00:27 WBC 5.7 (4.3-11.1) K/mcL Hgb 13.5 (12.9-16.9) g/dL Hct 41.7 (37.5-50.1) % Plt Count 185 (140-400) K/mcL Neutrophils # 3.4 (1.6-8.9) K/mcL BMP 09/20/16 00:27 Sodium 141 Potassium 3.9 Chloride 104 Carbon Dioxide 29 BUN 22 Creatinine 1.25 Glucose 106 H Calcium 9.3 Cardiac Enzymes 09/19/16 09/20/16 Range/Units 18:58 00:27 Troponin I 0.00 0.01 (0-0.03) ng/mL - ABG Interpretation ABG results: PT/INR, D-dimer PT 10.3 Seconds (9.4-12.1) 09/19/16 12:26 Consult Discharge Plan - Plan Referrals: Casi Henry MD [Primary Care Provider] - 09/30/16 9:20 am Prescriptions: Ticagrelor [Brilinta] 90 mg PO BID #60 tablet
[2016-09-20] MEDS ORDERED: *HR* LORazepam 2 MG/ML VIAL IVP PRN (18:33)
[2016-09-20] MEDS: *HR* Ticagrelor 90 MG TABLET PO SCH (20:18)
[2016-09-21 06:40] VITALS: BP 162/82
[2016-09-21 06:44] LABS: BUN/Creatinine Ratio 15 (6-26); Blood Urea Nitrogen 19 mg/dL (8-26); Calcium 9.4 mg/dL (8.6-10.8); Carbon Dioxide 28 mEq/L (19-29); Chloride 106 mEq/L (98-109); Glucose 108 mg/dL (70-99); Osmolality,Calculated 293 (280-300); Potassium 4.5 mEq/L (3.5-4.5); Sodium 140 mEq/L (136-145); eGFR For African Americans > 60 (> 60); eGFR For Non-African Americans 57 (> 60)
[2016-09-21] MEDS: *HR* Ticagrelor 90 MG TABLET PO SCH (07:53)
[2016-09-21] MEDS: Aspirin Enteric Coated 81 MG Tablet PO SCH (07:53)
[2016-09-21] MEDS: Cholecalciferol (D-3) 1,000 UNIT TABLET PO SCH (07:54)
[2016-09-21] MEDS: Isosorbide MONOnitrate (24 HR) 60 MG TAB.ER.24H PO SCH (07:54)
[2016-09-21] MEDS: amLODIPine 5 MG TABLET PO SCH (07:54)
--- NOTE | 2016-09-21 08:06 | Discharge Summary ---
Date of Encounter: 09/21/16 Time of Encounter: 07:50 - Discharge Diagnosis (1) Chest pain Priority: Primary Status: Resolved Comments: Patient denied chest pain on day of discharge. He had a left heart catheter which resulted in one stent placed to the RCA and he was started on Brillinta. Echocardiogram unremarkable with ejection fraction of 55%. Qualifiers: Chest pain type: other chest pain Qualified Code(s): R07.89 - Other chest pain; R07.8 - Other chest pain (2) Unstable angina pectoris Priority: Primary Status: Resolved (3) HLD (hyperlipidemia) Priority: Secondary Status: Chronic Comments: Lipid panel abnormal, recommend continue high-dose statin and low-cholesterol diet Qualifiers: Hyperlipidemia type: unspecified Qualified Code(s): E78.5 - Hyperlipidemia , unspecified (4) Hypertension Priority: Secondary Status: Chronic Comments: Controlled (borderline hypertensive just prior to discharge but patient stating he was anxoius to go home)- normotensive otherwise while admitted. Qualifiers: Hypertension type: essential hypertension Qualified Code(s): I10 - Essential (primary) hypertension (5) Bradycardia Priority: Primary Status: Resolved (6) CELINE (acute kidney injury) Priority: Primary Status: Acute Comments: mild; remained stable throughout this admission. Possible CKD but not enough prior values to determine chronicity- followup outpatient. (7) DVT prophylaxis Priority: Primary Status: Acute Comments: up ad fort[place]. (8) CAD (coronary artery disease) Priority: Secondary Status: Chronic Qualifiers: Coronary Disease-Associated Artery/Lesion type: [place] artery [place] vs. transplanted heart: [place] heart Associated angina: with unstable angina Qualified Code(s): I25.110 - Atherosclerotic heart disease of [place] coronary artery with unstable angina pectoris - Discharge Medications Prescriptions: amLODIPine [Norvasc] 5 mg PO DAILY #30 tablet Ticagrelor [Brilinta] 90 mg PO BID #60 tablet Home Medications: Aspirin [Adult Low Dose Aspirin EC] 81 mg PO DAILY 04/27/15 [History] Atorvastatin Calcium [Lipitor] 80 mg PO HS 04/27/15 [History] Hydrochlorothiazide [Microzide] 12.5 mg PO DAILY 04/27/15 [History] Hydroxychloroquine [Plaquenuil] 200 mg PO BID 04/27/15 [History] Isosorbide MONOnitrate [Isosorbide Mononitrate ER] 120 mg PO DAILY 04/27/15 [ History] Nitroglycerin 0.4 mg SL Q5MIN PRN 04/27/15 [History] Omeprazole [PriLOSEC] 40 mg PO DAILY 04/27/15 [History] Testosterone Cypionate [Depo-Testosterone] 200 mg IM Q2W 04/27/15 [History] Vardenafil HCl [Levitra] 20 mg PO DAILY PRN 04/27/15 [History] Amlodipine Besylate/Benazepril [Lotrel 5-10 mg Capsule] 1 cap PO DAILY 09/19/16 [History] Celecoxib [Celebrex] 200 mg PO BID PRN 09/19/16 [History] Cholecalciferol (D-3) [Vitamin D] 5,000 unit PO DAILY 09/19/16 [History] Diclofenac Sodium [Voltaren] 1 appl TP QID PRN 09/19/16 [History] Ticagrelor [Brilinta] 90 mg PO BID #60 tablet 09/20/16 [Rx] amLODIPine [Norvasc] 5 mg PO DAILY #30 tablet 09/21/16 [Rx] Allergies/Adverse Reactions: Allergies Iodinated Contrast- Oral and IV Dye [Iodinated Contrast Media - IV Dye] Allergy (Verified 04/27/15 23:31) Hives Procedures/tests Complete & Pending: Procedures Performed prior 72 hours Category Date Time Status CL Cardiac Catheterization [CL] Routine T[employer] Care Manager 09/20/16 08:52 Ordered ECG 12 lead ECG [ECG] AM 0600 Y 09/20/16 06:00 Ordered ECG 12 lead ECG [ECG] Routine Y 09/20/16 15:00 Ordered EV echocardiogram Routine Y 09/19/16 14:19 Completed Date of admission: 09/19/16 13:38 Primary care physician: Casi Henry, Discharging clinician: Mariam West Anticipated date of discharge: 09/21/16 - Patient Status Disposition: Home, Self-Care Condition: Good Functional capacity at discharge: independent ambulation Overall status at discharge: patient is back to baseline - Discharge Instructions Follow Up With: Casi Henry MD [Primary Care Provider] - 09/30/16 9:20 am Additional Instructions: Follow-up with primary care provider as scheduled - Diet and Activity Activity: increase activity as tolerated, resume usual activities as tolerated Diet: low fat, low cholesterol, low salt diet Hospital course: Mr. Melchor is a 61 year old male with past medical history of hypertension, hyperlipidemia, CAD status post stent, GERD, never smoker. Patient presented to the emergency department chief complaint of chest pain. He reported that the symptoms started several days prior to presentation described as heaviness on the left side of his chest and associated with shortness of breath, lightheadedness, sweating, and palpitations. The tubes are worsened with activity and exertion and relieved with rest and nitroglycerin. Patient denied headache, cough, fever, chills. EKG in the emergency department with nonspecific ST-T wave changes. Chest x-ray negative. Patient was admitted to the hospitalist service for further evaluation and management. Mild acute kidney injury noted to his RHONDA inhibitor was held during this admission. Patient was mildly bradycardic upon arrival however heart rate was stable throughout this admission-but he was not started on a beta zeferino. Troponins negative 3. Echocardiogram unremarkable with ejection fraction of 55%. He is also mildly hypertensive which improved with increase in his amlodipine dosage- his [id number] tablet does not come in 10-10 dosing so he was given a prescription for 5mg amlodipine and instructed to take it in addition to his other medication. Cardiology was brought on board who proceeded with a left heart catheter which resulted in a stent placement to his RCA. He was started on Brillinta. He was chest pain-free on day of discharge. His renal function remained stable, recommend close outpatient follow-up- his ACEI was resumed upon discharge and he is also on celebrex- will defer to his PCP. He was discharged home in stable condition with close outpatient follow-up recommended. ITS Impressions Chest X-Ray 09/19/16 12:15 IMPRESSION: No acute process. D/ / Lexa Overton MD / Lexa Overton MD Interpreting Provider: Lexa Overton MD Echocardiogram impressions: LVEF 55%. Normal LV chamber size, wall thickness and overall function. Mild segmental left ventricular systolic dysfunction. Mild left ventricular diastolic dysfunction. Normal right ventricular structure and function. No evidence of pulmonary hypertension. No significant valvular dysfunction. - Time Spent with Patient Total time spent providing and/or coordinating discharge services: - Constitutional Vitals: Temp Pulse Resp BP Pulse Ox 97.9 F 52 14 162/82 96 09/21/16 06:37 09/21/16 06:37 09/21/16 06:37 09/21/16 06:37 09/21/16 06:37 General appearance: Present: A&O X 3, pleasant, no acute distress, answers questions appropriately - Head Head exam: Present: atraumatic, normocephalic - Eye Eye exam: Present: PERRL, conjuntiva pink, sclera anicteric Pupils: Present: PERRL - Neck Neck exam general surgery: Present: supple, trachea midline. Absent: lymphadenopathy - Respiratory Respiratory exam: Present: CTAB. Absent: accessory muscle use, rales, respiratory distress, rhonchi, wheezes - Cardiovascular Cardiovascular exam: Present: RRR, +S1, +S2. Absent: diastolic murmur, gallop, rubs, systolic murmur - GI/Abdominal GI/Abdominal exam: Present: normal bowel sounds, soft, no peritoneal signs. Absent: distended, tenderness - Extremities Exam Extremities exam: Present: warm, radial pulses palpable and symetrical. Absent : calf tenderness, cyanotic, pedal edema - Neurological Exam Neurological exam: Present: alert, CN II-XII intact, normal gait, oriented X3, no focal deficits, strengths equal and symetr throughout. Absent: pronater drift, facial droop, speech deficit - Skin Skin exam: Present: dry, intact, normal color, warm
--- NOTE | 2016-09-24 13:41 | Invasive Diagnostic Lab ---
Name: Lexa Melchor Date of Study: 09/20/2016 Date: 1955 Ht: 175.0 cm /68.9 in Medical Record#: [id number] Age: 61 Wt: 90. kg / 198.42 lb Account/Order#: [id number] Gender: Male BSA: 2.06 Order #: [id number] Fluoro Dose: 890 mGy BMI: 29.39 Procedure Physician: Khang Matias MD, [facility] Referring MD: Referring MD: Procedures Performed: LEFT HEART CATH Stent w/ PTCA Single Major Vessel Indications: Unstable Angina, Abnormal Test - ECHO Impressions: There is severe one vessel coronary artery disease. The left ventricle is normal and has normal contractility EF 60% Patient had successful PTCA/Drug-Eluting Stent placement in the distal RCA. Recommendations: Optimal medical therapy of patient's disease. Aggressive risk factor modification. Patient being referred for cardiac rehab. History/Risk Factors: CAD stent DVT arthritis bradycardia CELINE Hypertension Dyslipidemia Procedure Access obtained in the right Radial artery by percutaneous puncture Patient had successful PTCA/Drug-Eluting Stent placement in the distal RCA. Complications: None Contrast: Isovue 109ml Closure Device: Mechanical Compression Hemodynamics: Pressures Site Systolic/ A Wave Diastolic/ V Wave End Diastolic/ Mean HR AO 91 68 79 84 LV 110 6 17 82 LV 122 21 53 80 AO 133 75 98 79 AO 129 58 102 77 LV Ventriculography Ejection Method: LV Gram Ejection Fraction: 60% Wall Motion: CHAMBERS Anterobasal Normal Anterolateral Normal Apical: Normal Inferoapical Mild Hypokinesis Inferobasal Normal Coronary Dominance: right Lesion Findings/Interventions * Left Main Coronary Artery The LMCA is angiographically free of disease. * Left Anterior Descending The LAD has a mid 30% stenosis with mild bridging The 1st Diagonal is angiographically free of disease. * Circumflex There is a 60% stenosis in the Mid Circumflex. * Right Coronary Artery There is a 38 mm long, 90% stenosis in the Distal RCA. The lesion has a MARCO flow of 3 and has no thrombus present. An intervention was performed on the Distal RCA with a final stenosis of 0%. There were no lesion complications. The final MARCO flow was 3. Interventional Device(s) Vessel Segment Type Name Diameter (mm) Length (mm) Distal RCA Balloon Emerge Monorail 2.5 15 Distal RCA Drug Eluting Stent Synergy 3 38 Distal RCA Balloon NC Trek Rx 3.5 15 Updated by Sahara Sites, RT (R) on 09/20/2016 11:16:04 AM Khang Matias MD, FACC electronically signed on 09/24/2016 1:37:29 PM with status of Final
== END 2016-09-21 09:04 | disposition home or self-care (01) ==
LOC: EMEROO 11:58 → 3BNU 11:58 → SUATTDRO 13:38 → 3BNU 14:22
PROVIDERS: ADMIT Internal Medicine; ATTEND Nurse Practitioner Family

== ENCOUNTER 2018-03-23 11:48 | Inpatient (IN) ==
--- NOTE | 2018-03-22 22:05 | Discharge Summary ---
Orders not resulted at time of discharge: Pending orders 03/23/18 01:00 XR post op reverse apex LT [XR] Routine Hemoglobin and Hematocrit [HEME] Routine Date of Encounter: 03/24/18 Time of Encounter: 13:03 - Discharge Diagnosis (1) Status post total replacement of left shoulder Priority: Primary Status: Acute (2) Rotator cuff tear arthropathy of left shoulder Priority: Primary Status: Chronic (3) Rheumatoid arthritis Priority: Secondary Status: Chronic Qualifiers: Rheumatoid arthritis location: unspecified site Rheumatoid factor presence: unspecified presence Qualified Code(s): M06.9 - Rheumatoid arthritis, unspecified (4) History of heart artery stent Priority: Secondary Status: Chronic (5) HLD (hyperlipidemia) Priority: Secondary Status: Chronic Qualifiers: Hyperlipidemia type: unspecified Qualified Code(s): E78.5 - Hyperlipidemia, unspecified (6) HTN (hypertension) Priority: Secondary Status: Chronic Qualifiers: Hypertension type: unspecified Qualified Code(s): I10 - Essential (primary) hypertension (7) CKD (chronic kidney disease) Priority: Secondary Status: Chronic Qualifiers: Chronic kidney disease stage: unspecified stage Qualified Code(s): N18.9 - Chronic kidney disease, unspecified (8) GERD (gastroesophageal reflux disease) Priority: Secondary Status: Chronic Qualifiers: Esophagitis presence: esophagitis presence not specified Qualified Code(s): K21.9 - Gastro-esophageal reflux disease without esophagitis (9) CAD (coronary artery disease) Priority: Secondary Status: Chronic Qualifiers: Coronary Disease-Associated Artery/Lesion type: unspecified vessel or lesion type [place] vs. transplanted heart: unspecified whether [place] or transplanted heart Associated angina: angina presence unspecified Qualified Code(s): I25.10 - Atherosclerotic heart disease of [place] coronary artery without angina pectoris - Hospital Course Hospital course: Mr. Melchor is a 63 year old male Date of procedure: 03/23/18 Pre-op diagnosis: Left shoulder cuff tear arthropathy Post-op diagnosis: same Procedure: Total Shoulder Replacment Reverse, left Patient seen at bedside. Spouse at bedside. A&Ox3 Dressing and incision c/d/i Zipline and audrey intact No calf tenderness, erythema, or warmth. Neurovascularly intact b/l UE. Sling in place. Labwork and medications reviewed. Pain control: Adequate Participating in PT. All questions and concerns addressed. Educated on use of incentive spirometer, ambulation, and hydration. Patient educated on post-operative restrictions and care. Addressed: see above. D/C plan: HOme with outpatient therapy today - Time Spent with Patient Total time spent providing and/or coordinating discharge services: - Discharge Medications Home Medications: Atorvastatin Calcium [Lipitor] 80 mg PO DAILY 04/27/15 [History] Hydrochlorothiazide [Microzide] 12.5 mg PO DAILY 04/27/15 [History] Hydroxychloroquine [Plaquenuil] 200 mg PO BID 04/27/15 [History] Nitroglycerin 0.4 mg SL Q5MIN PRN 04/27/15 [History] Diclofenac Sodium [Voltaren] 1 appl TP QID PRN 09/19/16 [History] Amlodipine Besylate/Benazepril [Lotrel 5-10 mg Capsule] 1 cap PO DAILY 07/01/17 [History] Ezetimibe [Zetia] 10 mg PO DAILY 07/01/17 [History] Folic Acid 1 mg PO DAILY 07/01/17 [History] Ranolazine [Ranexa] 500 mg PO BID 07/01/17 [History] Aspirin [Lo-Dose Aspirin EC] 81 mg PO DAILY 03/23/18 [History] Cholecalciferol (D-3) [Vitamin D] 5,000 unit PO DAILY 03/23/18 [History] Docusate Sodium [Colace] 100 mg PO BID 5 Days #10 capsule 03/23/18 [Rx] Multivitamin [One Daily Multivitamin] 1 tab PO DAILY 03/23/18 [History] Omeprazole [PriLOSEC] 40 mg PO DAILY 03/23/18 [History] OxyCODONE Immed Rel [Roxicodone 5 MG] 5 mg PO Q6HR PRN 7 Days #28 tablet 03/23/18 [Rx] Allergies/Adverse Reactions: Allergy/AdvReac Type Severity Reaction Status Date / Time Iodinated Contrast- Oral and Allergy BP UP, Verified 03/23/18 12:46 IV Dye SWELLING [Iodinated Contrast Media - IV Dye] Date of admission: 03/23/18 Primary care physician: Casi Henry MD Discharging clinician: Seven Madison Anticipated date of discharge: 03/24/18 - VTE Documentation of Mechanical Device: Venous foot pump, device - Patient Status Disposition: Home, Self-Care Condition: Good Functional capacity at discharge: independent ambulation Overall status at discharge: patient is progressing back to baseline - Discharge Instructions Instructions: Joint Replacement Surgery (DC) Follow Up With: Seven Madison MD [Partnered Physician] - Casi Henry MD [Primary Care Provider] - - Diet and Activity Activity: as per physical therapy Diet: advance to your usual diet
[2018-03-23] MEDS ORDERED: *HR* FentaNYL (PF) 100 MCG/2 ML VIAL ONE (12:29)
[2018-03-23] MEDS ORDERED: *HR* Succinylcholine 200 MG/10 ML VIAL IVP ONE (12:29)
[2018-03-23] MEDS ORDERED: Ondansetron 4 MG/2 ML VIAL ONE (12:29)
[2018-03-23] MEDS ORDERED: *HR* Midazolam HCl 2 MG/2 ML VIAL ONE (12:29)
[2018-03-23] MEDS ORDERED: Lidocaine -MPF 2% 2 ML VIAL ONE (12:29)
[2018-03-23] MEDS ORDERED: Dexamethasone 4 MG/ML VIAL ONE (12:29)
[2018-03-23] MEDS ORDERED: *HR* Propofol 200 MG/20 ML VIAL IVP ONE (12:30)
[2018-03-23] MEDS ORDERED: CeFAZolin Syr 2,000MG/20 ML 2,000 MG/20 ML SYRINGE IVPB ONE (12:39)
--- NOTE | 2018-03-23 12:40 | History & Physical Report ---
Date of Encounter: 03/23/18 Time of Encounter: 12:40 24 Hour HP Update - Instructions Instructions: If the History and Physical is less than 30 days old and was completed prior to A.M. admission and or procedure and has NOT been updated on calendar day of procedure please complete this update prior to performing procedure. - Update Patient reports changes in Medical Condition: No Changes in examination, assessment, or condition: No Changes in Medication: No Preop tests/diagnostics Reviewed: Yes Surgery Remains Indicated: Yes Consent for Planned Operative Procedure(s) Verified: Yes - Pre-Operative Checklist Preoperative Checklist Indicated: No Prophylactic Antibiotic Ordered: Yes Is VTE Prophylaxis Indicated?: Yes
[2018-03-23] MEDS ORDERED: Ringers Solution, Lactated 1,000 ML IVC SCH ×2 (12:45→16:51)
[2018-03-23] MEDS ORDERED: Ethanol\\Acetic Acid\\Na Ace\\Ben 1,000 ML IRRIG.SOLN IR ONE (12:52)
[2018-03-23] MEDS ORDERED: Bupivacaine/Clonidine Syringe 1 EACH SYRINGE ONE (13:11)
[2018-03-23] MEDS ORDERED: ROPIVACAINE HCL/PF 0.5% 30 ML VIAL ONE (13:11)
--- NOTE | 2018-03-23 13:46 | Anesthesia Evaluation PreOp ---
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: Denies Any Significant HX Other Medical History: Renal (CKD2) Anesthesia History: No Prior Anesthetic Complications, Past Anesthesia Alcohol Use: none Drug use: none Medications and Allergies Atorvastatin Calcium [Lipitor] 80 mg PO DAILY 04/27/15 [History] Hydrochlorothiazide [Microzide] 12.5 mg PO DAILY 04/27/15 [History] Hydroxychloroquine [Plaquenuil] 200 mg PO BID 04/27/15 [History] Nitroglycerin 0.4 mg SL Q5MIN PRN 04/27/15 [History] Diclofenac Sodium [Voltaren] 1 appl TP QID PRN 09/19/16 [History] Amlodipine Besylate/Benazepril [Lotrel 5-10 mg Capsule] 1 cap PO DAILY 07/01/17 [History] Ezetimibe [Zetia] 10 mg PO DAILY 07/01/17 [History] Folic Acid 1 mg PO DAILY 07/01/17 [History] Ranolazine [Ranexa] 500 mg PO BID 07/01/17 [History] Aspirin [Lo-Dose Aspirin EC] 81 mg PO DAILY 03/23/18 [History] Cholecalciferol (D-3) [Vitamin D] 5,000 unit PO DAILY 03/23/18 [History] Docusate Sodium [Colace] 100 mg PO BID 5 Days #10 capsule 03/23/18 [Rx] Multivitamin [One Daily Multivitamin] 1 tab PO DAILY 03/23/18 [History] Omeprazole [PriLOSEC] 40 mg PO DAILY 03/23/18 [History] OxyCODONE Immed Rel [Roxicodone 5 MG] 5 mg PO Q6HR PRN 7 Days #28 tablet 03/23/18 [Rx] Allergy/AdvReac Type Severity Reaction Status Date / Time Iodinated Contrast- Oral and Allergy BP UP, Verified 03/23/18 12:46 IV Dye SWELLING [Iodinated Contrast Media - IV Dye] - Meds/Allergy Pre-op Review Medications Reviewed: Yes Allergies Reviewed: Yes Beta Blockers on Current Med List: No Anesthesia Results - Labs Laboratory Tests 03/16/18 03/16/18 08:10 08:10 Hgb 13.4 Plt Count 200 Potassium 4.3 Creatinine 1.28 Est GFR (Non-Af Amer) 56 L Calcium 9.2 Anesthesia Exam Vital Signs/O2 Sat/Glucose, Most Recent Temp Pulse Resp BP Pulse Ox 98.6 F 72 18 125/81 98 03/23/18 12:21 03/23/18 12:21 03/23/18 12:21 03/23/18 12:21 03/23/18 12:21 Weight: 95 KG - BMI 31 NPO (# of Hours): >8 - HEENT Mallampati: I (LIMITED MO) Teeth: Normal Oral Opening: Greater than 3 - Cardiac Rhythm: Regular - Pulmonary Breath Sounds: bilateral Clear Respiratory Effort: Symmetrical Anesthesia Assess/Plan ASA Score: 3 Anesthetic Plan: General, Regional Nerve Block Regional Nerve Block Plan: Supraclavicular, Supracervical Plexus Monitoring Plan: Standard Monitors Recovery Plan: PACU
[2018-03-23] MEDS ORDERED: *HR* OxyCODONE Immed Rel 5 MG TABLET PO PRN ×2 (13:51→16:51)
[2018-03-23] MEDS ORDERED: *HR* HYDROmorphone (PF) 1 MG/ML SYRINGE IVP PRN (13:51)
--- NOTE | 2018-03-23 14:15 | Anesthesia Procedures ---
Date of Encounter: 03/23/18 Time of Encounter: 14:06 Procedures: Anesthesia - Nerve Block Procedure Date: 03/23/18 Time: 14:06 Allergies/Adv Reactions: IVP dye Pre-op Diagnosis: Left shoulder rotator cuff arthropathy Surgical Procedure: Left total shoulder replacement, reverse Checklist: Correct Patient Identifier, Correct procedure, History checked Correct side: Left Blood Thinner: No Monitor Applied: EKG, BP, Pulse Oximetry Supplemental Oxygen via Nasal Cannula (L/min): 2 Sedation: Versed (mg): 2 Sedation: Fentanyl (mcg): 100 Indication: Post Op Analgesia Pre-op Neuro Deficits: No Block Type: Supraclavicular, Other (SCP, ICB) Catheter placed: No Sterile Technique: Yes Ultrasound used: Yes Anatomy identified: Yes Visual spread of Local: Yes Neuro Stimulation: No Blood on Needle Aspiration: No Smooth Injection of Local: Yes Pain with Injection of Local: No Prep: Chlorhexadine Needle: 22 x 50 mm Stimuplex Local: 0.25% Bupivicaine w/Clonidine 20 mcg/cc (SCP, ICB 20ml), Ropivacaine (0.5% 30ml), Other (Decadron 8mg) Volume (cc): 50 Number of Attempts: 1 Complications: None/effective block Vitals: Vital Signs Temperature 98.6 F 03/23/18 12:21 Pulse Rate 72 03/23/18 12:21 Respiratory Rate 18 03/23/18 12:21 Blood Pressure 125/81 03/23/18 12:21 O2 Sat by Pulse Oximetry 98 03/23/18 12:21 Temperature 98.6 F 03/23/18 12:21 Pulse Rate 67 03/23/18 14:11 Respiratory Rate 16 03/23/18 14:11 Blood Pressure 135/80 03/23/18 14:11 O2 Sat by Pulse Oximetry 98 03/23/18 14:11
--- NOTE | 2018-03-23 15:33 | Orthopedic Operative Note ---
Date of procedure: 03/23/18 Pre-op diagnosis: Left shoulder cuff tear arthropathy Post-op diagnosis: same Procedure: Procedure: Total Shoulder Replacment Reverse, left Estimated blood loss: 50 cc Hardware: Metal and polyethylene replacement: Arthrex 28, +2 , 30 mm screw glenoid baseplate, 4 locking 5.5 screw, 42+4 glenosphere, 10 apex humeral stem, poly insert 3 Exam Under anesthesia: Full motion no instability Procedural Notes: Irreparable tear rotator cuff Operative procedure: The patient was brought to the operating room and placed on the operating room table. After general anesthesia was administered the operative shoulder was examined. Findings were noted. The patient was placed in the modified beachchair position. All pressure points were padded appropriately. And the head was stabilized in the neutral position. The operative extremity was prepped and draped in the sterile surgical fashion. The patient received IV antibiotics prior to skin incision. A standard deltopectoral approach was made to the operative shoulder. Incision was made to the skin and subcutaneous tissue,hemo stasis was obtained with Bovie cautery. Using careful blunt dissection the cephalic vein was identified and mobilized medially. The deltopectoral interval was developed and the clavipectoral fascia was incised. The subscap was released off the lesser tuberosity and tagged with #2 FiberWire suture subscap was irreparable. The humerus was dislocated patient noted to have irreparable tear supraspinatus tendon, and the humeral cut was made along the anatomic neck. Anterior and posterior Bankart retractors were placed to expose the glenoid. The glenoid guide was seated and the centering hole was made. It was reamed with the appropriate reamer. The 28, +2, 30 mm screw, baseplate was seated and secured with 4 locking 5.5 screw. The baseplate was irrigated and dried and the 32+4 Glenosphere was seated and secured with the Perez taper. The Perez taper was tested and found to be secure, glenosphere fixation was secondarily secured with the central screw. The humerus was redislocated and prepared with the diaphyseal reamers, followed by a broaching process up to the appropriate size 10 apex in the patient's anatomic version. The metaphyseal reamer was then utilized. Trial reduction found the shoulder to be relocatable. Trial components were removed and 10 apex stem was impacted in place in the patient's anatomic version. Trial reduction found the shoulder to be relocatable and stable with the appropriate 3 Trial component was removed and the real implant was seated and secured the shoulder was reduced. The shoulder had excellent motion and excellent stability and no evidence of dislocation. The deep tissue was irrigated with pulse irrigation. The deltopectoral interval was closed with a running #1 PDS suture, subcutaneous tissue was irrigated and closed with 0 PDS suture, the skin was closed with Dermabond. The patient was placed in a sterile dressing, abduction brace and extubated. The patient was then transferred to the recovery room in stable condition. Anesthesia: GETA Surgeon: Seven Madison Was there an classroom assistant present: No Estimated blood loss (cc): 50 Condition: stable Disposition: PACU
[2018-03-23 16:07] LABS: Hematocrit 40.5 % (37.5-50.1); Hemoglobin 13.4 g/dL (12.9-16.9)
--- NOTE | 2018-03-23 16:35 | Anesthesia Evaluation Post Op ---
Date of Encounter: 03/23/18 Time of Encounter: 16:20 - Discharge PostOp Status: Transfer Patient to floor (Patient's vital signs have been reviewed. Patient is stable postoperatively and has adequately recovered from anesthesia. Patient is determined to have stable airway patency and respiratory function including respiratory rate and oxygen saturation. Patient has a stable heart rate, blood pressure and adequate hydration. Patients mental status is acceptable. Patients temperature is appropriate. Pain and nausea are adequately controlled.)
[2018-03-23] MEDS ORDERED: Temazepam 15 MG CAPSULE PO PRN (16:51)
[2018-03-23] MEDS ORDERED: Sennosides 8.6 MG TABLET PO PRN (16:51)
[2018-03-23] MEDS ORDERED: Nitroglycerin 0.4 MG TAB.SUBL SL PRN (16:51)
[2018-03-23] MEDS ORDERED: Naloxone 0.4 MG/ML INJ IVP PRN (16:51)
[2018-03-23] MEDS ORDERED: MOM Conc 10 ML UD.LIQ PO PRN (16:51)
[2018-03-23] MEDS ORDERED: traMADol 50 MG TABLET PO PRN (16:51)
[2018-03-23] MEDS ORDERED: Ondansetron 4 MG/2 ML VIAL IVP PRN (16:51)
[2018-03-23] MEDS ORDERED: *HR* Enoxaparin 30 MG/0.3 ML SYRINGE SQ SCH (18:00)
[2018-03-23] MEDS: *HR* Enoxaparin 30 MG/0.3 ML SYRINGE SQ SCH (18:13)
[2018-03-23] MEDS: *HR* OxyCODONE/APAP 5/325 TABLET PO PRN (18:14)
[2018-03-23] MEDS ORDERED: Melatonin 3 MG TABLET PO PRN (18:49)
[2018-03-23] MEDS ORDERED: *HR* OxyCODONE/APAP 10/325 TABLET PO PRN (18:50)
[2018-03-23] MEDS: Ranolazine 500 MG TAB.ER.12H PO SCH (20:54)
[2018-03-24] MEDS: *HR* Enoxaparin 30 MG/0.3 ML SYRINGE SQ SCH (06:50)
--- NOTE | 2018-03-24 06:54 | Orthopedics Progress Note ---
Date of Encounter: 03/24/18 Time of Encounter: 06:54 Subjective Interval history: Patient was seen this morning doing well without complaints. Afebrile vital signs stable. Operative extremity: Neurovascularly intact Dressing clean dry and intact Calves nontender Assessment and plan: Continue with postoperative care Hematocrit 40 plan for discharge today Objective Vital signs: Vital Signs Temp Pulse Resp BP Pulse Ox 03/24/18 03:17 97.7 F 56 20 124/77 93 03/24/18 00:18 98.4 F 62 20 133/78 94 03/23/18 17:30 98.0 F 62 20 129/77 95 03/23/18 17:00 98.0 F 64 20 119/69 95 03/23/18 16:36 98.2 F 66 16 138/73 97 03/23/18 16:26 63 16 140/73 99 03/23/18 16:16 64 16 137/76 100 03/23/18 16:06 98.6 F 63 16 131/69 100 03/23/18 15:56 66 16 143/74 99 03/23/18 15:46 73 16 143/82 99 03/23/18 15:36 98.7 F 71 16 143/82 96 03/23/18 14:11 67 16 135/80 98 03/23/18 14:03 87 16 151/85 100 03/23/18 12:21 98.6 F 72 18 125/81 98 Intake and Output 03/23/18 03/23/18 03/24/18 15:59 23:59 07:59 Intake Total 100 / 100 Output Total 50 / 50 Balance -50 / -50 100 / 100 Intake: IV Fluids 100 / 100 Ancef 2,000 MG In 0.9 % Sodium 100 / 100 Chloride 100 ML @ 200 mls/hr IVPB Q8H [facility] Rx#:[id number] Output: Urine 0 / 0 Estimated Blood Loss 50 / 50 Other: # Voids 1 1 Weight 94.602 kg 99.3 kg Patient Weight 03/24/18 23:59 Weight 99.3 kg - Labs CBC & BMP: 03/23/18 15:54 - VTE Documentation of Mechanical Device: Venous foot pump, device Consult Discharge Plan - Plan Referrals: Casi Henry MD [Primary Care Provider] -
[2018-03-24] MEDS: Ranolazine 500 MG TAB.ER.12H PO SCH (08:07)
[2018-03-24 08:24] LABS: Hemoglobin 13.6 g/dL (12.9-16.9)
[2018-03-24 08:59] LABS: BUN/Creatinine Ratio 18 (6-26); Blood Urea Nitrogen 22 mg/dL (8-23); Calcium 9.5 mg/dL (8.6-10.3); Carbon Dioxide 27 mEq/L (23-29); Chloride 103 mEq/L (98-107); Glucose 123 mg/dL (70-105); Osmolality,Calculated 289 (280-300); Potassium 4.6 mEq/L (3.5-5.1); Sodium 137 mEq/L (136-145); eGFR For Non-African Americans > 60 (> 60)
[2018-03-24] MEDS ORDERED: Cholecalciferol (D-3) 1,000 UNIT TABLET PO SCH (09:00)
[2018-03-24] MEDS ORDERED: Multivit/Ca/Min/Fe/FA 1 TAB TABLET PO SCH (09:00)
[2018-03-24] MEDS ORDERED: Aspirin Enteric Coated 81 MG Tablet PO SCH (09:00)
[2018-03-24] MEDS ORDERED: (Ezetimibe [Zetia] 10 MG) PO SCH (09:00)
[2018-03-24] MEDS ORDERED: Folic Acid 1 MG TABLET PO SCH (09:00)
[2018-03-24] MEDS ORDERED: hydroCHLOROthiazide 25 MG TABLET PO SCH (09:00)
[2018-03-24] MEDS ORDERED: amLODIPine 5 MG TABLET PO SCH (09:00)
--- NOTE | 2018-03-24 10:31 | Electrocardiograph Report ---
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
[2018-03-24] MEDS: *HR* OxyCODONE/APAP 5/325 TABLET PO PRN ×2 (11:45→16:10)
--- NOTE | 2018-03-24 12:52 | Event Note ---
Date of Encounter: 03/24/18 Time of Encounter: 12:52
[2018-03-24 15:54] VITALS: BP 154/86
== END 2018-03-24 16:25 | disposition home or self-care (01) | DRG 483 ==
LOC: SAMDAY 11:48 → 3NENU 16:47
PROVIDERS: ADMIT Orthopaedic Surgery; ATTEND Orthopaedic Surgery

== ENCOUNTER 2018-09-11 16:58 | Observation (INO) ==
[2018-09-11 19:17] LABS: Basophils # 0.1 K/mcL (0.0-0.2); Basophils % 0.7 %; Eosinophils # 0.1 K/mcL (0.0-0.6); Eosinophils % 1.8 %; Hematocrit 43.3 % (37.5-50.1); Hemoglobin 13.9 g/dL (12.9-16.9); Immature Granulocytes % 0.3 % (0-4); Lymphocytes # 1.4 K/mcL (0.6-4.6); Lymphocytes % 19.5 %; Mean Corpuscular HGB Conc 32.1 g/dL (31.6-35.5); Mean Corpuscular Hemoglobin 29.6 pg (28.0-33.3); Mean Corpuscular Volume 92.1 fL (83.0-100.0); Mean Platelet Volume 9.3 fL (9.4-12.4); Monocytes # 0.6 K/mcL (0.0-1.3); Monocytes % 8.5 %; Platelet Count 191 K/mcL (140-400); Segmented Neutrophils % 69.2 %; White Blood Count 7.2 K/mcL (4.3-11.1)
[2018-09-11 19:24] LABS: INR 0.9; Prothrombin Time 10.7 Seconds (9.4-12.1)
[2018-09-11 19:33] LABS: BUN/Creatinine Ratio 15 (6-26); Blood Urea Nitrogen 20 mg/dL (8-23); Calcium 9.3 mg/dL (8.6-10.3); Carbon Dioxide 26 mEq/L (23-29); Chloride 105 mEq/L (98-107); Glucose 105 mg/dL (70-105); Osmolality,Calculated 297 (280-300); Potassium 3.9 mEq/L (3.5-5.1); Sodium 142 mEq/L (136-145); Troponin I < 0.03 ng/mL (< 0.04); eGFR For African Americans > 60 (> 60); eGFR For Non-African Americans 53 (> 60)
--- NOTE | 2018-09-11 19:51 | Emergency Department Note ---
Disposition Clinical Impression: Chronic chest pain, Chronic shortness of breath Disposition: Admitted As Inpatient Condition: Good Referrals: Casi Henry MD [Primary Care Provider] - Forms: ED Satisfaction Letter Time of Disposition: 19:55 Chest Pain HPI - General Chief Complaint: ED Chest Pain Stated Complaint: PE lung Source: patient Limitations: no limitations Vital Signs Reviewed: Yes Nursing Notes Reviewed: Yes - History of Present Illness HPI Narrative: This is a 63 year-old male with history of HTN, CAD/NV, and PAD. He presents with shortness of breath and left-sided chest pain for the past 6 months. The dyspnea is constant, worsened by exertion. The chest pain intermittent, also often exertional. Chronic cough, unchanged. No fever, leg pain or swelling. Nuria lyons had a cardiac cath about 2 months ago that showed CAD but no intervention warranted. He recently was found to have an elevated D-dimer, and a VQ scan performed this morning was indeterminate probability, so he was referred to the ED. Pt complaint: chest pain Onset (ago): month(s) (6) Duration: constant Pain Location: left chest Severity: moderate Severity scale (1-10): 4 Quality: tightness Pain Radiation: none Improves with: nothing Worsens with: exertion Associated symptoms: Reports: dyspnea, cough (chronic, unchanged). Denies: nausea, vomiting, syncope, palpitations, fever, leg swelling - Related Data Home Medications Medication Instructions Recorded Confirmed Atorvastatin Calcium [Lipitor] 80 mg PO DAILY 04/27/15 09/11/18 Hydrochlorothiazide [Microzide] 12.5 mg PO DAILY 04/27/15 09/11/18 Hydroxychloroquine [Plaquenuil] 200 mg PO BID 04/27/15 09/11/18 Nitroglycerin 0.4 mg SL Q5MIN PRN 04/27/15 09/11/18 Amlodipine Besylate/Benazepril 1 cap PO DAILY 07/01/17 09/11/18 [Lotrel 5-10 mg Capsule] Ezetimibe [Zetia] 10 mg PO DAILY 07/01/17 09/11/18 Folic Acid 1 mg PO DAILY 07/01/17 09/11/18 Ranolazine [Ranexa] 500 mg PO BID 07/01/17 09/11/18 Aspirin [Lo-Dose Aspirin EC] 81 mg PO DAILY 03/23/18 09/11/18 Multivitamin [One Daily 1 tab PO DAILY 03/23/18 09/11/18 Multivitamin] Omeprazole [PriLOSEC] 40 mg PO DAILY 03/23/18 09/11/18 Allergies Allergy/AdvReac Type Severity Reaction Status Date / Time Iodinated Contrast- Oral and Allergy BP UP, Verified 03/23/18 12:46 IV Dye SWELLING [Iodinated Contrast Media - IV Dye] All systems ED: reviewed and negative except as stated. Constitutional: Denies: fever Cardiovascular: Reports: chest pain, dyspnea on exertion, edema. Denies: palpitations Respiratory: Reports: cough, dyspnea Gastrointestinal: Denies: abdominal pain, nausea, vomiting Endocrine: Reports: fatigue Chest Pain PMH - Past Medical History Medical history: Reports: arthritis, coronary artery disease, GERD, hyperlipidemia, hypertension, myocardial infarction, peripheral artery disease, TIA Surgical history: Reports: angioplasty/stent, arthroscopy, orthopedic, other Psychiatric history: Reports: depression - Social History Smoking Status: Never smoker Alcohol use: Reports: none Drug use: Reports: none Physical Exam - General Limitations: no limitations General appearance: alert, in no apparent distress - Head Head exam: atraumatic, normocephalic - Eye Eye exam: Present: normal appearance - ENT ENT exam: normal exam - Neck Neck exam: Present: normal inspection - Respiratory Respiratory exam: Present: normal lung sounds bilaterally. Absent: respiratory distress - Cardiovascular Cardiovascular exam: Present: regular rate, normal rhythm, normal heart sounds - Abdominal Exam Abdominal exam: Present: soft, Non-Tender. Absent: distention - Extremities Exam Extremities exam: Present: pedal edema, other (mild bilateral lower extremity edema). Absent: calf tenderness - Neurological Exam Neurological exam: Present: alert, oriented X3 - Psychiatric Psychiatric exam: Present: normal affect, normal mood - Skin Skin exam: Present: warm, dry, intact Course - Consultations Consultation #1: Reviewed case with Dr. Palmer and patient accepted for admission. Time: 22:23 Vital Signs Temperature 98.7 F 09/11/18 18:01 Pulse Rate 81 09/11/18 18:01 Respiratory Rate 20 09/11/18 18:01 Blood Pressure 141/101 09/11/18 18:01 O2 Sat by Pulse Oximetry 95 09/11/18 18:01 Temperature 98.7 F 07/05/19 18:01 Pulse Rate 67 09/11/18 21:03 Respiratory Rate 16 09/11/18 21:03 Blood Pressure 112/69 09/11/18 21:03 O2 Sat by Pulse Oximetry 96 09/11/18 21:03 Oxygen Delivery Oxygen Delivery Room Air Chest Pain - MDM Narrative Medical decision making narrative: Patient's story and indeterminate VQ scan unconvincing for PE. He will need further evaluation, possibly to include bilateral venous duplex studies and CT PE study, which will require pretreatment. - Lab Data Lab results reviewed: Yes I reviewed the patient's lab results. Result diagrams: 09/11/18 18:57 09/11/18 18:57 Lab Results 09/11/18 09/11/18 09/11/18 Range/Units 18:57 18:57 18:57 WBC 7.2 (4.3-11.1) K/mcL RBC 4.70 (4.19-5.50) M/mcL Hgb 13.9 (12.9-16.9) g/dL Hct 43.3 (37.5-50.1) % MCV 92.1 (83.0-100.0) fL MCH 29.6 (28.0-33.3) pg MCHC 32.1 (31.6-35.5) g/dL RDW 13.0 (11.5-14.5) % Plt Count 191 (140-400) K/mcL MPV 9.3 L (9.4-12.4) fL Immature Gran % 0.3 (0-4) % Seg Neutrophils % 69.2 % Lymphocytes % 19.5 % Monocytes % 8.5 % Eosinophils % 1.8 % Basophils % 0.7 % Neutrophils # 5.0 (1.6-8.9) K/mcL Lymphocytes # 1.4 (0.6-4.6) K/mcL Monocytes # 0.6 (0.0-1.3) K/mcL Eosinophils # 0.1 (0.0-0.6) K/mcL Basophils # 0.1 (0.0-0.2) K/mcL PT 10.7 (9.4-12.1) Seconds INR 0.9 APTT 30.0 (26.0-36.0) Seconds Sodium 142 (136-145) mEq/L Potassium 3.9 (3.5-5.1) mEq/L Chloride 105 (98-107) mEq/L Carbon Dioxide 26 (23-29) mEq/L BUN 20 (8-23) mg/dL Creatinine 1.35 H (0.70-1.30) mg/dL Est GFR ( Amer) > 60 (> 60) Est GFR (Non-Af Amer) 53 L (> 60) BUN/Creatinine Ratio 15 (6-26) Glucose 105 (70-105) mg/dL Calculated Osmolality 297 (280-300) Calcium 9.3 (8.6-10.3) mg/dL Troponin I < 0.03 (< 0.04) ng/mL - Radiology Data Radiology results reviewed: Yes I reviewed the patient's radiology results. CXR - NAD VQ - indeterminate - EKG Data EKG attestation: Yes I reviewed and interpreted this EKG. EKG results narrative: NSR at 69. PRWP. No acute ischemic findings.
[2018-09-12] MEDS ORDERED: *HR* Acetylcysteine 20% 600 MG/3 ML ORAL SYRINGE PO ONE (00:28)
[2018-09-12] MEDS ORDERED: methylPREDNISolone 125 MG/2 ML VIAL IVP ONE (00:28)
[2018-09-12] MEDS ORDERED: Famotidine 20 MG/2 ML VIAL IVP ONE (00:28)
[2018-09-12] MEDS ORDERED: Isovue-370 500 ML BOTTLE IVP ONE (00:29)
[2018-09-12] MEDS ORDERED: *HR* HYDROcodone/Acet 5/325 mg TABLET PO PRN (00:55)
[2018-09-12] MEDS ORDERED: *HR* Promethazine 25 MG/ML VIAL IVP PRN (00:55)
[2018-09-12] MEDS ORDERED: Naloxone 0.4 MG/ML INJ IVP PRN (00:55)
[2018-09-12] MEDS ORDERED: Acetaminophen 325 MG TABLET PO PRN (00:55)
[2018-09-12] MEDS ORDERED: Nitroglycerin 0.4 MG TAB.SUBL SL PRN (01:01)
--- NOTE | 2018-09-12 01:10 | Internal Med History&Physical ---
Date of Encounter: 09/12/18 Time of Encounter: 00:00 Internal Medicine - H&P: HPI Chief complaint: SOB Admitted From: Emergency Dept Plans for Post Hospital Care: Home History of present illness: Mr. Melchor is a 63 year old male w/PMH of CAD, GERD, HLD, HTN, CKD, kidney stones, arthritis, angina, and depression presents with CC of SOB for the past 4 months. Pt. states that this has become progressively worse. Reports they live in a 2-story home and when he reaches the 15th step on the second floor he is extremely SOB. Pt. reports he experiences occasional heart flutter w/exertion. Recently had Holter monitor done w/Dr. Barboza. Hx of 2 stents w/i the past 6 years. Also has recent LHC which showed blockages of 50%, 25%, and 10%. No additional stents placed. Reports that he has recently begun gasping for air oc casionally and experiences pressure in his left chest during these episodes. Hx of 29 kidney stones. V-Q scan done this a.m. which was indeterminate. D-dimer today at PCPs was 1596 so he was referred to ED. Pt. reports allergy to oral and IV dye and states his BP goes up and he experienced swelling in his hands. He states that he has had IV dye since that time for renal stones and is pre-medicated with IVP steroid and Benadryl and has no problems. Hx of CKD w/current GFR of 53 and creatinine of 1.35. Patient denies swelling in bilateral LEs, recent illness, fever, chills, nausea, vomiting, headache, changes in vision, unusual bleeding, abdominal pain, diarrhea, constipation, numbness, tingling, dizziness, lightheadedness, pre-syncope, or syncope. Past Med Surg Social Fam HX - Past Medical History Source: patient, old records reviewed Medical history: arthritis, coronary artery disease, GERD, hyperlipidemia, hypertension, kidney stones, renal disease, other (Angina) Additional medical history: Rhumatoid arthritis Psychiatric history: depression - Past Surgical History Surgical History: angioplasty/stent (x2), arthroscopy, orthopedic, other Additional surgical history: Right shoulder scope, ROTATOR CUFF TEAR REPAIR 10/2014,KIDNEY STONES, INGUINAL HERNIA REPAIR,CATARACTS,LEFT CARPAL TUNNEL RELEASE . Stents x 2, Left shoulder surgery - Social History Smoking Status: Never smoker Smokeless Tobacco Status: No Alcohol use: none Drug use: none - Family History Father Race: Family Member Ethnicity: Non- Living Status: Age at : 74 Cause of : [place] Hx Family Cardiac Disorders: Yes (CAD, [place]) Hx Family Psychosocial Disorders: Yes (Tobacco abuse) Sister Race: Family Member Ethnicity: Non- Living Status: Still Living Hx Family Cardiac Disorders: Yes ([place], Pacemaker, HLD, HTN) Hx Family Endocrine Disorder: Yes (Thyroid disease) Hx Family Musculoskeletal Disorders: Yes (Arthritis) Mother Race: Family Member Ethnicity: Non- Living Status: Age at : 70 Cause of : Pancreatic failure/Sepsis Hx Family Musculoskeletal Disorders: Yes (Arthritis) Brother Race: Family Member Ethnicity: Non- Living Status: Still Living Hx Family Cardiac Disorders: Yes (CAD, HTN) Internal Medicine - H&P: Meds Atorvastatin Calcium [Lipitor] 80 mg PO DAILY 04/27/15 [History] Hydrochlorothiazide [Microzide] 12.5 mg PO DAILY 04/27/15 [History] Hydroxychloroquine [Plaquenuil] 200 mg PO BID 04/27/15 [History] Nitroglycerin 0.4 mg SL Q5MIN PRN 04/27/15 [History] Amlodipine Besylate/Benazepril [Lotrel 5-10 mg Capsule] 1 cap PO DAILY 07/01/17 [History] Ezetimibe [Zetia] 10 mg PO DAILY 07/01/17 [History] Folic Acid 1 mg PO DAILY 07/01/17 [History] Ranolazine [Ranexa] 500 mg PO BID 07/01/17 [History] Aspirin [Lo-Dose Aspirin EC] 81 mg PO DAILY 03/23/18 [History] Multivitamin [One Daily Multivitamin] 1 tab PO DAILY 03/23/18 [History] Omeprazole [PriLOSEC] 40 mg PO DAILY 03/23/18 [History] Allergy/AdvReac Type Severity Reaction Status Date / Time Iodinated Contrast- Oral and Allergy BP UP, Verified 03/23/18 12:46 IV Dye SWELLING [Iodinated Contrast Media - IV Dye] All Systems PM: A 10-system review of systems was performed and is negative for pertinent findings except as documented above in the HPI. - Constitutional Constitutional: no chills, no fever(s), no night sweats - EENT Eyes: no change in vision, no discharge, no pain, no photophobia Ears: no ear discharge, no ear pain, no tinnitus Nose, mouth and throat: no dysphagia, no nasal discharge, no neck pain, no sore throat - Breasts Breasts: as per HPI - Cardiovascular Cardiovascular ROS IM: as per HPI, chest pain (Pressure during periods of SOB), dyspnea, dyspnea on exertion, irregular heart rhythm (Flutter w/exertion), no diaphoresis, no lightheadedness, no palpitations, no syncope - Respiratory Respiratory: dyspnea, dyspnea on exertion, no cough, no wheezing, no excessive phlegm production - Gastrointestinal Gastrointestinal: as per HPI, dyspepsia, no abdominal pain, no diarrhea, no hematemesis, no hematochezia, no melena, no nausea, no vomiting - Genitourinary Genitourinary ROS male: as per HPI - Musculoskeletal Musculoskeletal ROS IM: as per HPI, arthralgias, no numbness, no tingling - Integumentary Integumentary IM: no rash, no unusual bruising - Neurological Neurological ROS: no confusion, no convulsions, no focal weakness, no numbness, no tingling, no tremor(s) - Psychiatric Psychiatric: as per HPI, depression - Endocrine Endocrine IM: as per HPI - Hematologic/Lymphatic Hematologic/Lymphatic: no easy bruising - Allergic/Immunologic Allergic/Immunologic: as per HPI - Constitutional Vitals: Temp Pulse Resp BP Pulse Ox 98.3 F 62 16 168/93 96 09/11/18 23:12 09/11/18 23:12 09/11/18 23:12 09/11/18 23:12 09/11/18 23:12 General appearance: Present: cooperative, A&O X 3, pleasant, no acute distress, obese, answers questions appropriately Exam: Patient examined at bedside. Reports SOB and fluttering heart w/exertion. Descr ibes pressure in left chest w/exertion as well. Denies any other sx or complaints on exam. VS: 98.3F temp, HR 62, RR 16 BP 168/93, SPO2 96% on room air. - Head Head exam: Present: atraumatic, normocephalic - Eye Eye exam: Present: PERRL, conjuntiva pink, sclera anicteric Pupils: Present: PERRL - ENT ENT exam: Present: normal exam - Neck Neck exam general surgery: Present: normal inspection, supple, trachea midline. Absent: lymphadenopathy - Respiratory Respiratory exam: Present: CTAB. Absent: accessory muscle use, rales, rhonchi, wheezes - Cardiovascular Cardiovascular exam: Present: RRR, +S1, +S2. Absent: diastolic murmur, gallop, rubs, systolic murmur - GI/Abdominal GI/Abdominal exam: Present: normal bowel sounds, soft, no peritoneal signs. Absent: distended, tenderness - Rectal Rectal exam: Present: deferred - Additional comments: exam deferred. - Extremities Exam Extremities exam: Present: warm, radial pulses palpable and symmetrical. Absent: calf tenderness, cyanotic, pedal edema - Back Exam Back exam: Present: normal inspection - Neurological Exam Neurological exam: Present: alert, CN II-XII intact, oriented X3, no focal deficits. Absent: pronater drift, facial droop, speech deficit - Psychiatric Psychiatric exam: Present: normal affect, normal mood - Skin Skin exam: Present: dry, intact Internal Med - H&P Results - Labs CBC & Chem 7: 09/11/18 18:57 09/11/18 18:57 Labs: Short CBC 09/11/18 Range/Units 18:57 WBC 7.2 (4.3-11.1) K/mcL Hgb 13.9 (12.9-16.9) g/dL Hct 43.3 (37.5-50.1) % Plt Count 191 (140-400) K/mcL Neutrophils # 5.0 (1.6-8.9) K/mcL BMP 09/11/18 18:57 Sodium 142 Potassium 3.9 Chloride 105 Carbon Dioxide 26 BUN 20 Creatinine 1.35 H Glucose 105 Calcium 9.3 Cardiac Enzymes 09/11/18 Range/Units 18:57 Troponin I < 0.03 (< 0.04) ng/mL - EKG Data Prior EKG available for review: no EKG comments: 09/12/18 02:01 EKG dated 09/11/18 shows sinus rhythm with abnormal R-wave progression in late transition and left ventricular hypertrophy. - Diagnostic Studies Chest x-ray Additional comments: EXAMINATION: TWO XRAY VIEWS OF THE CHEST 09/11/2018 11:02 am COMPARISON: September 19, 2006 HISTORY: ORDERING SYSTEM PROVIDED HISTORY: Other forms of dyspnea FINDINGS: The lungs are clear there is no infiltrate effusion or pneumothorax. The cardiac silhouette is normal. There are no bony abnormalities seen. XR/XR chest 2V IMPRESSION: Normal chest x-ray D/ / Son Day MD / Son Day MD Interpreting Provider: Son Day MD Other Images Additional comments: EXAMINATION: NUCLEAR MEDICINE VENTILATION PERFUSION SCAN. 09/11/2018 TECHNIQUE: 35.5 millicuries aerosolized Tc99m DTPA was administered via mask prior to planar imaging of the lungs in multiple projections. Then, 6.5 millicuries of Tc 99m MAA was administered intravenously prior to planar imaging of the lungs in similar projections. COMPARISON: Chest radiograph 09/11/2018. HISTORY: ORDERING SYSTEM PROVIDED HISTORY: chest pain FINDINGS: PERFUSION: Moderate-sized unmatched defect in the right lower lobe. No additional perfusion defects are demonstrated. VENTILATION: Ventilation images are unremarkable. CHEST RADIOGRAPH: No focal areas of consolidation or significant effusions on recent chest radiograph. NM/NM pul vent and perfuse IMPRESSION: Indeterminate for pulmonary embolism given a single moderate-sized unmatched defect. D/ / Diogenes Ortez MD / Diogenes Ortez MD Interpreting Provider: Diogenes Ortez MD - Assessment and Plan (1) SOB (shortness of breath) Current Visit: Yes Status: Acute Assessment and plan: Acute on chronic SOB that has become progressively worse. Reports they live in a 2-story home and when he reaches the 15th step on the second floor he is extremely SOB. Pt. reports he experiences occasional heart flutter w/exertion. Recently had Holter monitor done w/Dr. Barboza. Hx of 2 stents w/i the past 6 years. Also has recent LHC which showed blockages of 50%, 25%, and 10%. No additional stents placed. Reports that he has recently begun gasping for air occasionally and experiences pressure in his left chest during these episodes. Concern for possible PE. V-Q scan done this a.m. which was indeterminate. D- dimer today at PCPs was 1596 so he was referred to ED. Pt. reports allergy to oral and IV dye and states his BP goes up and he experienced swelling in his hands. He states that he has had IV dye since that time for renal stones and is pre-medicated with IVP steroid and Benadryl and has no problems. Hx of CKD w/current GFR of 53 and creatinine of 1.35. As VQ scan was inconclusive, I fo llowed the algorithm for dx of PE. Indeterminate VQ scan gives a 30% probability of PE and Dopplers of the LEs is recommended to r/o DVTs/SVTs. Dopplers negative for both. Patient is to be pre-medicated with 1,200 mg PO acetylcysteine, 50 mg IVP Benadryl, 125 mg IVP Solu-Medrol, and 20 mg IVP Pepcid prior to CTA of chest. 125 mls/hr 0.9 IV fluids to begin after CTA. Will administer 4 doses of 1,200 mg acetylcysteine twice a day 2 days after CTA for renal protection. Due to length of time of shortness of breath, respiratory infection panel ordered. Pt. is high risk for further morbidity, worsening respiratory distress, and complications d/t SOB of unknown etiology but worsening nature, hx of CAD w/stents x2 and recent discovery of additional blockages, new onset of flutter, risk factors, and familial hx of CAD/[place]. Observation. (2) Fluttering heart Current Visit: Yes Status: Acute Assessment and plan: Hx of acute on chronic fluttering heart. Continuous cardiac telemetry. Continue patient's Ranexa 500 mg by mouth twice a day. Pt. is followed by Dr. Barboza for Cardiology. Recent LHC showed blockages of 50%, 25%, and 10%. Patient has stent placement 2. Recent Holter monitor. EKG shows sinus rhythm with abnormal R-wave progression and early transition and left ventricular hypert rophy. Patient reports atrial flutter with exertion. F/u w/Dr. Barboza OP. Consider adding Cardiology consult if atrial flutter persists during admission. (3) Unstable angina pectoris Current Visit: Yes Status: Chronic Assessment and plan: Hx of chronic unstable angina. Continuous cardiac telemetry. Continue patient's Ranexa 500 mg by mouth twice a day. Pt. is followed by Dr. Barboza for Cardiology. Recent LHC showed blockages of 50%, 25%, and 10%. Patient has stent placement 2. Recent Holter monitor. Patient reports atrial flutter with exertion. F/u w/Dr. Braboza OP. Consider adding Cardiology consult if atrial flutter persists during admission. (4) CAD (coronary artery disease) Current Visit: Yes Status: Chronic Assessment and plan: Hx of chronic CAD. Stents x2. Recent LHC showed additional blockages of 50%, 25%, and 10%. No additional stents placed. Pt. is not currently on Plavix. Continuous cardiac telemetry. Continue patient's HTN and HLD medications. 81 mg ASA daily. Qualifiers: Coronary Disease-Associated Artery/Lesion type: minto artery [place] vs. transplanted heart: minto heart Associated angina: with unstable angina Qualified Code(s): I25.110 - Atherosclerotic heart disease of minto coronary artery with unstable angina pectoris (5) HTN (hypertension) Current Visit: Yes Status: Chronic Assessment and plan: Hx of chronic HTN. Monitor patient vital signs. Continue patient's amlodipine and hydrochlorothiazide. Qualifiers: Hypertension type: essential hypertension Qualified Code(s): I10 - Ess ential (primary) hypertension (6) HLD (hyperlipidemia) Current Visit: Yes Status: Chronic Assessment and plan: Hx of chronic HLD. Patient had lipid panel done recently by Dr. Barboza. Continue patient's Lipitor 80 mg daily. Qualifiers: Hyperlipidemia type: pure hypercholesterolemia Qualified Code(s): E78.00 - Pure hypercholesterolemia, unspecified; E78.0 - Pure hypercholesterolemia (7) CKD (chronic kidney disease) Current Visit: Yes Status: Chronic Assessment and plan: Hx of chronic CKD. Currently stage IIIa with GFR 53 and creatinine of 1.35. Avoid nephrotoxins. 0.9 IV fluids at 125 MLS per hour following CTA to help flush IV contrast. By mouth acetylcysteine 1200 mg by mouth prior to CTA and 1200 mg by mouth twice a day 2 days after CTA for renal protection. Monitor I&O. Qualifiers: Chronic kidney disease stage: stage 3 (moderate) Qualified Code(s): N18.3 - Chronic kidney disease, stage 3 (moderate) (8) GERD (gastroesophageal reflux disease) Current Visit: Yes Status: Chronic Assessment and plan: Hx of chronic GERD. Patient reported taking 40 mg by mouth Prilosec daily which she states does not work well. Patient states Zantac works much better. Ranitidine 150 mg by mouth twice a day oral solution ordered. Qualifiers: Esophagitis presence: esophagitis presence not specified Qualified Code(s): K21.9 - Gastro-esophageal reflux disease without esophagitis (9) Rheumatoid arthritis Current Visit: Yes Status: Chronic Assessment and plan: Hx of chronic RA. Stair-step pain medications for pain mgmt. Continue patient's Plaquenil 200 mg twice a day. Qualifiers: Rheumatoid arthritis location: unspecified site Rheumatoid factor presence: unspecified presence Qualified Code(s): M06.9 - Rheumatoid arthritis, unspecified (10) Depression Current Visit: Yes Status: Chronic Assessment and plan: Hx of chronic depression. Pt. does not currently take medication for this. Monitor for behavioral changes. Qualifiers: Depression Type: other depression Qualified Code(s): F32.89 - Other specified depressive episodes (11) DVT prophylaxis Current Visit: Yes Status: Acute Assessment and plan: Heparin 5,000 units SQ Q8HR for DVT prophylaxis. Monitor pt. for signs of bleeding. - Time Spent With Patient Total time spent is greater than 50% in coordination of care (as documented) at patient's floor/unit and/or counseling patient: Greater than 35 minutes
[2018-09-12 02:22] LABS: Hematocrit 42.3 % (37.5-50.1); Hemoglobin 13.7 g/dL (12.9-16.9); Mean Corpuscular HGB Conc 32.4 g/dL (31.6-35.5); Mean Corpuscular Hemoglobin 30.4 pg (28.0-33.3); Mean Corpuscular Volume 93.8 fL (83.0-100.0); Mean Platelet Volume 9.2 fL (9.4-12.4); Platelet Count 177 K/mcL (140-400); Red Blood Count 4.51 M/mcL (4.19-5.50); Red Cell Distribution Width 13.2 % (11.5-14.5); White Blood Count 6.6 K/mcL (4.3-11.1)
[2018-09-12] MEDS: 0.9 % Sodium Chloride 1,000 ML IVC SCH ×2 (02:28→08:54)
[2018-09-12 02:38] LABS: BUN/Creatinine Ratio 15 (6-26); Blood Urea Nitrogen 20 mg/dL (8-23); Calcium 9.2 mg/dL (8.6-10.3); Carbon Dioxide 29 mEq/L (23-29); Chloride 104 mEq/L (98-107); Glucose 106 mg/dL (70-105); Osmolality,Calculated 295 (280-300); Sodium 141 mEq/L (136-145); eGFR For African Americans > 60 (> 60); eGFR For Non-African Americans 54 (> 60)
[2018-09-12] MEDS ORDERED: *HR* Heparin 5,000 UNIT/ML VIAL IVP ONE (03:10)
[2018-09-12] MEDS ORDERED: *HR* Heparin 5,000 UNIT/ML VIAL IVP PRN ×2 (03:10)
[2018-09-12] MEDS ORDERED: Heparin 25,000 UNIT/250 ML D5W 25,000 UNIT/250 ML IV.SOLN IVC SCH (03:15)
[2018-09-12 04:20] LABS: Heparin anti-factor XA UFH 0.02 IU/mL (0.30-0.70)
[2018-09-12 04:22] LABS: Activated Partial Thrombo Time 29.5 Seconds (26.0-36.0)
[2018-09-12] MEDS ORDERED: *HR* Heparin 5,000 UNIT/ML VIAL SQ SCH (06:00)
[2018-09-12] MEDS ORDERED: Folic Acid 1 MG TABLET PO SCH (09:00)
[2018-09-12] MEDS ORDERED: Ranolazine 500 MG TAB.ER.12H PO SCH (09:00)
[2018-09-12] MEDS ORDERED: *HR* Acetylcysteine 20% 600 MG/3 ML ORAL SYRINGE PO SCH (09:00)
[2018-09-12] MEDS ORDERED: hydroCHLOROthiazide 25 MG TABLET PO SCH (09:00)
[2018-09-12] MEDS ORDERED: Aspirin Enteric Coated 81 MG Tablet PO SCH (09:00)
[2018-09-12] MEDS ORDERED: amLODIPine 5 MG TABLET PO SCH (09:00)
--- NOTE | 2018-09-12 09:38 | Event Note ---
Date of Encounter: 09/12/18 Time of Encounter: 09:00 Interval HX: The patient presented from his PCPs office due to elevated d-dimer and indeterminant V/Q scan following persistent symptoms of mild chest pain and exertional dyspnea with cough. CTA revealed a pulmonary embolus, patient started on heparin drip and admitted for observation. Bilateral lower extremity Doppler did not reveal DVT. The patient was seen and examined at bedside this morning. Continues to have mild chest pain, dyspnea, cough. No worse than yesterday. No pain in his legs or calf, denies fevers chills, abdominal complaints, urinary complaints. Would like to know when he can go home. ROS: Gen.: Denies fevers chills HEENT: Denies dysphagia blurred vision Neck: Denies neck pain stiffness Chest: Admits continued periods of chest pressure/pain, made worse on exertion. Patient is not diaphoretic and has not experienced syncope and has no symptoms of palpitations Respiratory: Dyspnea on exertion, mild cough, no wheezing AB D: Denies nausea or vomiting diarrhea constipation early pain Neurological: Denies confusion weakness numbness tingling Skin: Denies rash bleeding or bruising PE: Gen.: No acute distress, calm and cooperative Head: Atraumatic normocephalic Eyes: EOMI, no nystagmus ENT: Oropharynx clear mucous membranes dry Neck: Soft supple nonpalpable thyroid CV: Regular rate at time of exam, rhythm shows flutter, no murmurs gallops or rubs Respiratory: Lungs clear to auscultation bilaterally no wheezes rales or rhonchi Abdomen: Soft nontender nondistended bowel sounds present Extremities: No evidence of peripheral edema, DP pulses +2, no rash A/P: 1.) Pulmonary embolus of the right lower lobe -As demonstrated on CTA -Persistent symptoms of cough and dyspnea mild chest pain on exertion -
[2018-09-12 12:11] VITALS: BP 107/65
[2018-09-12] MEDS ORDERED: *HR* Rivaroxaban 15 MG TABLET PO SCH ×2 (14:07→17:00)
--- NOTE | 2018-09-12 14:15 | Discharge Summary ---
<Soy Lisa - Last Filed: 09/12/18 18:23> Orders not resulted at time of discharge: Pending orders 09/11/18 18:45 ECG 12 lead ECG [ECG] Stat 09/11/18 23:18 Respiratory Infection Panel [MOLMIC] Stat 09/12/18 01:39 EKG [ECG 12 lead ECG] [ECG] Stat 09/12/18 19:45 Heparin anti-factor XA UFH [COAG] Timed 09/13/18 04:00 Basic Metabolic Panel AM 0400 Complete Blood Count w/o Diff [HEME] AM 0400 Date of Encounter: 09/12/18 - Discharge Diagnosis (1) Pulmonary embolus Priority: Primary Status: Acute Qualifiers: Pulmonary embolism type: other Chronicity: acute Acute cor pulmonale presence: without acute cor pulmonale Qualified Code(s): I26.99 - Other pulmonary embolism without acute cor pulmonale (2) Unstable angina pectoris Status: Ruled-out (3) DVT prophylaxis Status: Acute (4) CAD (coronary artery disease) Priority: Secondary Status: Chronic Qualifiers: Coronary Disease-Associated Artery/Lesion type: [place] artery [place] vs. transplanted heart: [place] heart Associated angina: without angina Qualified Code(s): I25.10 - Atherosclerotic heart disease of [place] coronary artery without angina pectoris (5) Rheumatoid arthritis Priority: Secondary Status: Chronic Qualifiers: Rheumatoid arthritis location: unspecified site Rheumatoid factor presence: unspecified presence Qualified Code(s): M06.9 - Rheumatoid arthritis, unspecified (6) HLD (hyperlipidemia) Priority: Secondary Status: Chronic Qualifiers: Hyperlipidemia type: mixed hyperlipidemia Qualified Code(s): E78.2 - Mixed hyperlipidemia (7) CKD (chronic kidney disease) Priority: Secondary Status: Chronic Qualifiers: Chronic kidney disease stage: stage 3 (moderate) Qualified Code(s): N18.3 - Chronic kidney disease, stage 3 (moderate) (8) GERD (gastroesophageal reflux disease) Priority: Secondary Status: Chronic Qualifiers: Esophagitis presence: esophagitis presence not specified Qualified Code(s): K21.9 - Gastro-esophageal reflux disease without esophagitis (9) SOB (shortness of breath) Priority: Secondary Status: Acute (10) Fluttering heart Priority: Secondary Status: Acute (11) Depression Priority: Secondary Status: Chronic Qualifiers: Depression Type: other depression Qualified Code(s): F32.89 - Other specified depressive episodes (12) HTN (hypertension) Priority: Secondary Status: Chronic Qualifiers: Hypertension type: essential hypertension Qualified Code(s): I10 - Essential (primary) hypertension Hospital course: Mr. Melchor is a 63 year old male - Time Spent with Patient Total time spent providing and/or coordinating discharge services: - Discharge Medications Prescriptions: New Rivaroxaban [Xarelto] 15 mg PO BID 21 Days #42 tablet Rivaroxaban [Xarelto] 20 mg PO DAILY #7 tablet Acetaminophen [Tylenol] 650 mg PO Q6HR PRN tablet PRN Reason: Mild Pain/Fever Continued Ezetimibe [Zetia] 10 mg PO DAILY Folic Acid 1 mg PO DAILY Ranolazine [Ranexa] 500 mg PO BID Amlodipine Besylate/Benazepril [Lotrel 5-10 mg Capsule] 1 cap PO DAILY Aspirin [Lo-Dose Aspirin EC] 81 mg PO DAILY Multivitamin [One Daily Multivitamin] 1 tab PO DAILY Omeprazole [PriLOSEC] 40 mg PO DAILY Nitroglycerin 0.4 mg SL Q5MIN PRN PRN Reason: Chest Pain Atorvastatin Calcium [Lipitor] 80 mg PO DAILY Hydroxychloroquine [Plaquenuil] 200 mg PO BID Hydrochlorothiazide [Microzide] 12.5 mg PO DAILY Home Medications: Atorvastatin Calcium [Lipitor] 80 mg PO DAILY 04/27/15 [History] Hydrochlorothiazide [Microzide] 12.5 mg PO DAILY 04/27/15 [History] Hydroxychloroquine [Plaquenuil] 200 mg PO BID 04/27/15 [History] Nitroglycerin 0.4 mg SL Q5MIN PRN 04/27/15 [History] Amlodipine Besylate/Benazepril [Lotrel 5-10 mg Capsule] 1 cap PO DAILY 07/01/17 [History] Ezetimibe [Zetia] 10 mg PO DAILY 07/01/17 [History] Folic Acid 1 mg PO DAILY 07/01/17 [History] Ranolazine [Ranexa] 500 mg PO BID 07/01/17 [History] Aspirin [Lo-Dose Aspirin EC] 81 mg PO DAILY 03/23/18 [History] Multivitamin [One Daily Multivitamin] 1 tab PO DAILY 03/23/18 [History] Omeprazole [PriLOSEC] 40 mg PO DAILY 03/23/18 [History] Acetaminophen [Tylenol] 650 mg PO Q6HR PRN tablet 09/12/18 [Rx] Rivaroxaban [Xarelto] 15 mg PO BID 21 Days #42 tablet 09/12/18 [Rx] Rivaroxaban [Xarelto] 20 mg PO DAILY #7 tablet 09/12/18 [Rx] Allergies/Adverse Reactions: Allergy/AdvReac Type Severity Reaction Status Date / Time Iodinated Contrast- Oral and Allergy BP UP, Verified 03/23/18 12:46 IV Dye SWELLING [Iodinated Contrast Media - IV Dye] Date of admission: 09/11/18 22:29 Primary care physician: Casi Henry MD - Constitutional Vitals: Temp Pulse Resp BP Pulse Ox 97.8 F 77 16 107/65 92 09/12/18 12:10 09/12/18 12:10 09/12/18 12:10 09/12/18 12:10 09/12/18 12:10 - Patient Status Disposition: Home, Self-Care Condition: Good - Discharge Instructions Follow Up With: Casi Henry MD [Primary Care Provider] - Additional Instructions: TAKE MEDICATIONS PRESCRIBED. RETURN TO EMERGENCY DEPT WITH ANY NEW OR WORSENING SHORTNESS OF BREATH/CHEST PAIN. FOLLOW UP WITH PRIMARY CARE DOCTOR . Follow-up appointments: If there is not an appointment listed below, please call your physician and schedule a follow-up appointment. If you have congestive heart failure and your symptoms return, make an appointment with your physician. Medication List: Carry an up to date list of medications you are taking at all time. We have given you an updated medication list including any new medications that you have been prescribed. Please provide that list to your primary provider Symptoms: If your condition changes or you experience any of the following symptoms, notify your physician immediately: Unusual or worsening pain, fever, persistent nausea and vomiting, bleeding, increase in swelling (especially in your legs), sudden weight gain, extreme dizziness, chest pain, increased drainage or redness from a wound or incision. Go to the emergency department if you experience a problem with breathing. Weights: If you have a history of swelling or shortness of breath, weigh yourself daily and notify your physician if you have a weight gain of two or more pounds in one day or 5 or more pounds in a week. If you experience any of the warning signs for stroke: Sudden numbness or weakness of the face, arm or leg; especially on one side of the body, sudden confusion, trouble speaking or understanding, sudden trouble seeing in one or both eyes, sudden trouble walking, dizziness, loss of balance or coordination, sudden sever headache with no cause; Call 911 or go to the emergency room. Stroke is a medical emergency. Some risk factors for stroke: Age, cigarette smoking, diabetes, excessive alcohol consumption, family history, high blood pressure, overweight, physical inactivity, prior stroke, heart attack, diagnosis of carotid artery stenosis or other artery disease. If you smoke, STOP: Smoking or tobacco use significantly increases your risk of heart and lung disease. Your chance of disease greatly increases if you continue to smoke. For more information, call the [employer] quit line for smoking cessation 4-183-UUZW-NOW ( ) - Attending Attestation I examined this patient and my medical decision-making was reviewed with the Resident Physician on 09/12/18. I agree with the documented findings, disposition and treatment plan as described except to the extent set forth below. Mr Melchor has been hospitalized for acute PE. He is hemodynamically stable and not on oxygen. He tolerated IV heparin and will be transitioned to PO Xarelto. He has been educated on anticoagulant. He is afebrile and ready for discharge. Heart reg and not tachy and lungs clear. Will follow up with PCP. Pt was seen face to face and was greater than 8 hours between admit and discharge. <Kumar Machuca - Last Filed: 09/12/18 20:32> - NOTES TO OUTPATIENT PROVIDER Notes to Outpatient Provider: Patient was admitted for mild chest pain and cough. CTA revealed a small right lower lobe pulmonary embolism. Patient was started on heparin drip. Patient was switched to Xarelto, given a starter pack prescription and sent home. Follow-up regarding management of his anticoagulation. Orders not resulted at time of discharge: Pending orders 09/11/18 18:45 ECG 12 lead ECG [ECG] Stat 09/11/18 23:18 Respiratory Infection Panel [MOLMIC] Stat 09/12/18 01:39 EKG [ECG 12 lead ECG] [ECG] Stat 09/12/18 19:45 Heparin anti-factor XA UFH [COAG] Timed 09/13/18 04:00 Basic Metabolic Panel AM 0400 Complete Blood Count w/o Diff [HEME] AM 0400 Date of Encounter: 09/12/18 Time of Encounter: 11:45 - Discharge Diagnosis (1) Pulmonary embolus Priority: Primary Status: Acute Qualifiers: Pulmonary embolism type: other Chronicity: acute Acute cor pulmonale presence: without acute cor pulmonale Qualified Code(s): I26.99 - Other pulmonary embolism without acute cor pulmonale (2) Chronic chest pain Priority: Secondary Status: Acute (3) CAD (coronary artery disease) Priority: Secondary Status: Chronic Qualifiers: Coronary Disease-Associated Artery/Lesion type: [place] artery [place] vs. transplanted heart: [place] heart Associated angina: without angina Qualified Code(s): I25.10 - Atherosclerotic heart disease of [place] coronary artery without angina pectoris (4) Fluttering heart Priority: Secondary Status: Acute Hospital course: Mr. Melchor is a 63 year old male with a past medical history coronary artery disease hyperlipidemia hypertension and angina, who presented at the recommendation of his primary care provider due to mild chest pain and shortness of breath of several months duration, elevated d-dimer and indeterminate VQ s can. A CT of the chest in the emergency department revealed a right lower lobe pulmonary embolus and the patient was started on a heparin drip. The patient does have a history of CK D and as a result was pre-medicated with steroids and Benadryl. The patient denied any other systemic complaints and physical exam was overall unremarkable. On hospital day 2 the patient was deemed stable enough for discharge pending garcia check of a direct oral anticoagulant. The patient was educated about his options regarding initiating Xarelto and subsequently discharging versus bridging with Coumadin and monitoring for a few days. The patient voiced a desire to be discharged and agreed to the plan regarding Xarelto. His heparin drip was stopped, he was given one oral dose of 15 mg Xarelto with his dinner, and then he was discharged. She was sent home with a 15 mg twice per day oral prescription for Xarelto for the duration of 21 days, followed by 20 mg orally once daily for 7 days. The patient was educated regarding the risks and benefits of anticoagulation including the risk of bleeding and/or hemorrhage. He was instructed to get a medical alert bracelet and follow up with his primary care provider within the next 30 days for management of his anticoagulation. The patient voiced understanding and was amenable to the plan of care, he was hemodynamically stable and was subsequently discharged. Discharge discussed with: patient, family, nurse - Time Spent with Patient Total time spent providing and/or coordinating discharge services: Time spent: Greater than 30 minutes Date of admission: 09/11/18 22:29 Primary care physician: Casi Henry MD Discharging clinician: Soy Lisa Anticipated date of discharge: 09/12/18 - Constitutional Vitals: Temp Pulse Resp BP Pulse Ox 97.8 F 77 16 107/65 92 09/12/18 12:10 09/12/18 12:10 09/12/18 12:10 09/12/18 12:10 09/12/18 12:10 General appearance: Present: cooperative, A&O X 3, pleasant, no acute distress, obese, answers questions appropriately Exam: Patient examined at bedside. Reports SOB and fluttering heart w/exertion. Describes pressure in left chest w/exertion as well. Denies any other sx or complaints on exam. VS: 98.3F temp, HR 62, RR 16 BP 168/93, SPO2 96% on room air. General: Alert and oriented, no acute distress HEENT: Atraumatic normocephalic, EOM I, oropharynx clear, mucous membranes moist CV: Regular rate and rhythm, no murmurs gallops rubs Respiratory: Clear to auscultation bilaterally, no wheezes rales or rhonchi Abdomen: Soft nontender nondistended. Bowel sounds present Extremities: Moves all extremities appropriately, full range of motion, no edema Neuro: No focal neurological deficits, strength and sensation intact Skin: No rashes, ulcers - Patient Status Functional capacity at discharge: independent ambulation Overall status at discharge: patient is back to baseline - Diet and Activity Activity: resume usual activities as tolerated Diet: advance to your usual diet
--- NOTE | 2018-09-13 09:31 | Electrocardiograph Report ---
[facility] [employer] Test Date: 2018-09-11 Pat Name: Lexa Melchor Department: EXAM3 Room: 3B66 Gender: M [employer]: : [id number] Requested By: Son Worrell Order Number: [id number] Reading MD: Jamel Vigil Measurements Intervals [place] Rate: 69 P: 51 IN: 152 QRS: -36 QRSD: 110 T: 23 QT: 406 QTc: 435 Interpretive Statements Sinus rhythm Abnormal R-wave progression, late transition Left ventricular hypertrophy Electronically Signed On 09-13-2018 9:29:12 EDT by Jamel Vigil
== END 2018-09-12 17:12 | disposition home or self-care (01) ==
LOC: 3BNU 16:58 → EMEROOARM 16:58 → SUATTDRO 22:29 → 3BNU 22:55
PROVIDERS: ADMIT Internal Medicine Nephrology; ATTEND Internal Medicine

== ENCOUNTER 2019-09-07 10:03 | Inpatient (IN) ==
[~2019-09-07 10:03] MED LIST: ceFAZolin 1,000 MG, Sodium Chloride IRRigation 1,000 ML IR ONE
[2019-09-07] MEDS ORDERED: CeFAZolin Syr 2,000MG/20 ML 2,000 MG/20 ML SYRINGE IVPB ONE (10:24)
[2019-09-07] MEDS ORDERED: *HR* Rocuronium Bromide 50 MG/5 ML VIAL ONE (10:25)
[2019-09-07] MEDS ORDERED: Lidocaine -MPF 2% 2 ML VIAL ONE (10:25)
[2019-09-07] MEDS ORDERED: Ondansetron 4 MG/2 ML VIAL ONE (10:25)
[2019-09-07] MEDS ORDERED: *HR* FentaNYL (PF) 100 MCG/2 ML VIAL ONE (10:25)
[2019-09-07] MEDS ORDERED: *HR* Midazolam HCl 2 MG/2 ML VIAL ONE (10:26)
[2019-09-07] MEDS ORDERED: *HR* Propofol 200 MG/20 ML VIAL IVP ONE (10:26)
[2019-09-07] MEDS ORDERED: Ringers Solution, Lactated 1,000 ML IVC SCH (10:30)
[2019-09-07] MEDS ORDERED: 0.9 % Sodium Chloride 1,000 ML IVC SCH (10:45)
[2019-09-07] MEDS ORDERED: *HR* Promethazine 25 MG/ML VIAL IVP PRN (10:54)
[2019-09-07] MEDS ORDERED: *HR* HYDROmorphone PF 0.5 MG/0.5 ML SYRINGE IVP PRN (10:54)
[2019-09-07] MEDS ORDERED: Ondansetron 4 MG/2 ML VIAL IVP ONE (10:54)
[2019-09-07] MEDS ORDERED: *HR* OxyCODONE Immed Rel 5 MG TABLET PO PRN (10:54)
[2019-09-07] MEDS ORDERED: Acetaminophen IV 1,000 MG/100 ML BAG IVPB ONE (10:57)
[2019-09-07] MEDS ORDERED: Heparin 1,000 UNITS/500 mL 0 ML ONE (11:12)
[2019-09-07] MEDS ORDERED: Lidocaine HCL 4 ML Topical Solution (Laryng-O-Jet Kit Sterile Pak) TP ONE (11:51)
[2019-09-07] MEDS ORDERED: Protamine Sulfate 50 MG/5 ML VIAL IVP ONE (11:53)
[2019-09-07] MEDS ORDERED: Heparin 1,000 UNITS/500 mL 1,000 ML ONE (11:53)
[2019-09-07] MEDS ORDERED: *HR* Vasopressin 20 UNIT/ML VIAL ONE (11:58)
[2019-09-07] MEDS ORDERED: *HR* PHENYLEPHRINE 1,000 MCG/10 ML SYRINGE IVP ONE (12:23)
[2019-09-07] MEDS ORDERED: EPHEDrine 50 MG/ML VIAL ONE (12:30)
[2019-09-07] MEDS ORDERED: *HR* Heparin 5,000 UNIT/ML VIAL ONE ×2 (12:53→14:09)
[2019-09-07] MEDS ORDERED: Dexamethasone 4 MG/ML VIAL ONE (13:12)
[2019-09-07] MEDS ORDERED: Nitroglycerin 0.4 MG TAB.SUBL SL PRN (15:53)
[2019-09-07] MEDS ORDERED: *HR* Labetalol 20 MG/4 ML SYRINGE IVP PRN (15:53)
[2019-09-07] MEDS ORDERED: *HR* HYDROcodone/Acet 5/325 mg TABLET PO PRN (15:53)
[2019-09-07] MEDS ORDERED: Acetaminophen 325 MG TABLET PO PRN (15:53)
[2019-09-07] MEDS ORDERED: Ondansetron 4 MG/2 ML VIAL IVP PRN (15:53)
[2019-09-07] MEDS ORDERED: Naloxone 0.4 MG/ML INJ IVP PRN (15:53)
[2019-09-07] MEDS ORDERED: DICLOFENAC SODIUM TP SCH (21:00)
[2019-09-07] MEDS: Ranolazine 500 MG TAB.ER.12H PO SCH (22:40)
[2019-09-07] MEDS: CeFAZolin 2 GM/120 ML BAG IVPB SCH (22:40)
[2019-09-08] MEDS: CeFAZolin 2 GM/120 ML BAG IVPB SCH ×2 (04:27→09:51)
[2019-09-08 04:37] LABS: Basophils % 0.1 %; Hematocrit 39.5 % (37.5-50.1); Hemoglobin 13.2 g/dL (12.9-16.9); Immature Granulocytes % 0.3 % (0-4); Lymphocytes # 0.6 K/mcL (0.6-4.6); Lymphocytes % 6.7 %; Mean Corpuscular HGB Conc 33.4 g/dL (31.6-35.5); Mean Corpuscular Hemoglobin 31.4 pg (28.0-33.3); Mean Corpuscular Volume 93.8 fL (83.0-100.0); Mean Platelet Volume 9.5 fL (9.4-12.4); Monocytes # 0.3 K/mcL (0.0-1.3); Monocytes % 3.1 %; Neutrophils # 8.3 K/mcL (1.6-8.9); Platelet Count 179 K/mcL (140-400); Red Blood Count 4.21 M/mcL (4.19-5.50); Red Cell Distribution Width 13.1 % (11.5-14.5); Segmented Neutrophils % 89.8 %; White Blood Count 9.3 K/mcL (4.3-11.1)
[2019-09-08 04:57] LABS: BUN/Creatinine Ratio 17 (6-26); Blood Urea Nitrogen 22 mg/dL (8-23); Calcium 8.4 mg/dL (8.6-10.3); Carbon Dioxide 23 mEq/L (23-29); Chloride 104 mEq/L (98-107); Glucose 150 mg/dL (70-105); Osmolality,Calculated 288 (280-300); Potassium 4.5 mEq/L (3.5-5.1); Sodium 136 mEq/L (136-145); eGFR For African Americans > 60 (> 60); eGFR For Non-African Americans 55 (> 60)
[2019-09-08 07:09] VITALS: BP 115/71
[2019-09-08] MEDS: Ranolazine 500 MG TAB.ER.12H PO SCH (07:36)
[2019-09-08] MEDS ORDERED: (Leflunomide 10 MG) PO SCH (09:00)
[2019-09-08] MEDS ORDERED: Folic Acid 1 MG TABLET PO SCH (09:00)
[2019-09-08] MEDS ORDERED: (Ezetimibe [Zetia] 10 MG) PO SCH (09:00)
[2019-09-08] MEDS ORDERED: Multivit/Ca/Min/Fe/FA 1 TAB TABLET PO SCH (09:00)
[2019-09-08] MEDS ORDERED: lisinopriL 10 MG TABLET PO SCH (09:00)
[2019-09-08] MEDS ORDERED: Cholecalciferol (D-3) 1,000 UNIT (25MCG) TABLET PO SCH (09:00)
[2019-09-08] MEDS ORDERED: NON-FORMULARY MEDICATION 1 EACH EACH (Amlodipine Besylate/Benazepril [Lotrel 5-10 Mg Capsu PO SCH (09:00)
[2019-09-08] MEDS ORDERED: amLODIPine 5 MG TABLET PO SCH (09:00)
== END 2019-09-08 11:35 | disposition home or self-care (01) | DRG 38 ==
LOC: SAMDAY 10:03 → 2NNU 15:35
PROVIDERS: ADMIT Surgery Vascular Surgery; ATTEND Surgery Vascular Surgery

== ENCOUNTER 2020-09-21 11:47 | Inpatient (IN) ==
[2020-09-21] MEDS ORDERED: Naloxone 0.4 MG/ML INJ IVP PRN (15:10)
[2020-09-21] MEDS: Apixaban 5 MG TABLET PO SCH (21:05)
[2020-09-22 08:27] LABS: Hematocrit 39.4 % (37.5-50.1); Hemoglobin 12.3 g/dL (12.9-16.9); Mean Corpuscular HGB Conc 31.2 g/dL (31.6-35.5); Mean Corpuscular Hemoglobin 32.2 pg (28.0-33.3); Mean Corpuscular Volume 103.1 fL (83.0-100.0); Mean Platelet Volume 9.8 fL (9.4-12.4); Platelet Count 156 K/mcL (140-400); Red Blood Count 3.82 M/mcL (4.19-5.50); Red Cell Distribution Width 12.2 % (11.5-14.5); White Blood Count 4.3 K/mcL (4.3-11.1)
[2020-09-22] MEDS: Apixaban 5 MG TABLET PO SCH ×2 (08:27→20:42)
[2020-09-22 08:52] LABS: BUN/Creatinine Ratio 16 (6-26); Blood Urea Nitrogen 16 mg/dL (8-23); Calcium 8.8 mg/dL (8.6-10.3); Carbon Dioxide 26 mEq/L (23-29); Chloride 108 mEq/L (98-107); Glucose 80 mg/dL (70-105); Osmolality,Calculated 292 (280-300); Potassium 4.1 mEq/L (3.5-5.1); Sodium 141 mEq/L (136-145); eGFR For African Americans > 60 (> 60); eGFR For Non-African Americans > 60 (> 60)
[2020-09-22] MEDS: Aspirin Enteric Coated 81 MG Tablet PO SCH (13:16)
[2020-09-22] MEDS ORDERED: Perflutren Lipid Microsphere 1.3 ML in 0.9 % Sodium Chloride 8.7 ML IVP PRN (16:08)
[2020-09-22 17:25] LABS: Albumin 4.4 g/dL (3.5-5.7); Albumin/Globulin Ratio 1.8 (1.1-2.2); Bilirubin,Direct 0.1 mg/dL (0.0-0.2); Bilirubin,Indirect 0.5 mg/dL (0.0-1.0); Bilirubin,Total 0.6 mg/dL (0.3-1.0); Total Protein 6.8 g/dL (6.4-8.9)
[2020-09-22 17:26] LABS: Globulin 2.4 g/dL (2.4-3.5)
[2020-09-22 17:38] LABS: Thyroid Stimulating Hormone 0.854 mcIU/mL (0.340-5.600)
[2020-09-23 05:01] LABS: Hematocrit 39.8 % (37.5-50.1); Hemoglobin 13.1 g/dL (12.9-16.9); Mean Corpuscular HGB Conc 32.9 g/dL (31.6-35.5); Mean Corpuscular Hemoglobin 33.1 pg (28.0-33.3); Mean Corpuscular Volume 100.5 fL (83.0-100.0); Mean Platelet Volume 9.7 fL (9.4-12.4); Platelet Count 150 K/mcL (140-400); Red Blood Count 3.96 M/mcL (4.19-5.50); Red Cell Distribution Width 12.1 % (11.5-14.5); White Blood Count 4.8 K/mcL (4.3-11.1)
[2020-09-23 05:20] LABS: BUN/Creatinine Ratio 19 (6-26); Blood Urea Nitrogen 21 mg/dL (8-23); Calcium 8.8 mg/dL (8.6-10.3); Carbon Dioxide 26 mEq/L (23-29); Chloride 108 mEq/L (98-107); Glucose 108 mg/dL (70-105); Osmolality,Calculated 296 (280-300); Potassium 4.2 mEq/L (3.5-5.1); Sodium 141 mEq/L (136-145); eGFR For African Americans > 60 (> 60); eGFR For Non-African Americans > 60 (> 60)
[2020-09-23 06:31] VITALS: O2SAT 96
[2020-09-23] MEDS ORDERED: Regadenoson 0.4 MG/5 ML SYRINGE IVP ONE (07:07)
[2020-09-23] MEDS ORDERED: NON-FORMULARY MEDICATION 1 EACH EACH (Ezetimibe [Zetia] 10 MG Tablet) PO SCH (09:00)
[2020-09-23] MEDS ORDERED: Folic Acid 1 MG TABLET PO SCH (09:00)
[2020-09-23 10:43] VITALS: BP 142/90; PULSE 63; TEMP 98.5
[2020-09-23] MEDS: Apixaban 5 MG TABLET PO SCH (10:58)
[2020-09-23] MEDS: Aspirin Enteric Coated 81 MG Tablet PO SCH (10:58)
== END 2020-09-23 16:45 | disposition home or self-care (01) | DRG 313 ==
LOC: 3BNU → SUATTDRO 13:49
PROVIDERS: ADMIT Pharmacist; ATTEND Registered Nurse